=== PATIENT | female | born 1990 | race Caucasian/White ===

== ENCOUNTER 2020-11-05 08:30 | Outpatient (REF) | payer OTHER, SELFPAY ==
[2020-11-05 15:54] LABS: CT PCR NOT DETECTED (Not Detect.); NG PCR NOT DETECTED (Not Detect.)
[2020-11-06 08:40] LABS: BV Int Neg Control Negative (Negative); BV Int Pos Control Positive (Positive)
== END 2020-11-05 08:31 | disposition home or self-care (01) ==
LOC: HO.LAB 08:30
PROVIDERS: PCP Internal Medicine; Visit Provider Advanced Practice Midwife
DX: Z11.3 Encounter for screening for infections with a predominantly sexual mode of transmission (principal); N89.8 Other specified noninflammatory disorders of vagina; Z20.2 Contact with and (suspected) exposure to infections with a predominantly sexual mode of transmission
CPT/HCPCS: 87480; 87491; 87510; 87591; 87660; 99212

== ENCOUNTER 2021-03-05 13:00 | Outpatient (RCR) | payer OTHER, SELFPAY ==
--- NOTE | 2021-03-05 17:14 | MHC.PT.EP ---
[facility] Office [place] Office [place] Office [address] [phone] F: [phone] F: [phone] F: [phone] F: [phone] Physical Therapy Plan of Care Date of Evaluation: Date of Surgery: Diagnosis: dorsalgia Assessment: Pt is a 30 y/o female [employer] referred to PT for eval and treat of dorsalgia who reports recent bout of sciatica who presents with signs and Sx consistent with Dx resulting in decreased tolerance for gym exercise, standing and sitting for duration, and lifting objects of weight secondary to increased lumbar tissue tension, decreased core and hip strength, mild decreased R LE sensation and strength and LBP. Pt is deemed an appropriate candidate to receive skilled PT in order to address her physical limitations to improve her functional ability. Frequency and Duration: The patient will be seen 2 x/5wks. Short Term Goals: improve pain with activity to < 3/10; initial: 5/10 initiate HEP Snf Goals: I with HEP. Pt will be able to lift objects of weight from the floor with managed Sx. improve core strength to > good +. Pt will report she id no linger painful with standing for duration. Treatment Plan: Modalities to reduce pain, spasms and effusion. Manual therapy to restore motion and function. Therapeutic exercise to improve strength and flexibility. Neuromuscular re-education for posture and balance. Therapeutic activities to return to functional activities of daily living. Electronically signed by: Oscar Cheung PT. Please sign and return to therapist. Thank you for your referral.
--- NOTE | 2021-09-27 11:36 | MHC.PT.DC ---
[facility] [place] Office [place] Office [place] Office [address] Maria Eugenia Dixon [address] [phone] F: [phone] F: [phone] F: [phone] F: [phone] Physical Therapy Discharge Report Diagnosis: dorsalgia Date of Surgery: Date of Evaluation: 03/05/21 Date of Discharge: 03/05/21 Treatments to Date: 1 Cancellations to Date: No Shows to Date: Discharge Status: Discharge Summary: Pt stopped PT after evaluation Electronically signed by: Shmuel Alicia, PT Please sign and return to therapist. Thank you for your referral.
== END 2021-09-27 11:36 | disposition home or self-care (01) ==
LOC: HO.PTCHIC 13:00
PROVIDERS: PCP Internal Medicine; Visit Provider Internal Medicine
DX: M54.9 Dorsalgia, unspecified (principal)
CPT/HCPCS: 97110; 97161

== ENCOUNTER 2021-05-11 15:55 | Outpatient (REF) | payer OTHER, SELFPAY ==
[2021-05-11 18:39] LABS: Influenza A PCR NEGATIVE (Negative); Influenza B PCR NEGATIVE (Negative); Resp Syncy Virus RNA Qual PCR NEGATIVE (Negative); SARS COV2 PCR INHOUSE NEGATIVE (Negative)
== END 2021-05-11 15:56 | disposition home or self-care (01) ==
LOC: HO.LAB 15:55
PROVIDERS: PCP Internal Medicine; Visit Provider Nurse Practitioner Family
DX: J02.9 Acute pharyngitis, unspecified (principal); H66.90 Otitis media, unspecified, unspecified ear; R59.9 Enlarged lymph nodes, unspecified; Z20.822 Contact with and (suspected) exposure to COVID-19
CPT/HCPCS: 0241U

== ENCOUNTER 2021-05-24 09:03 | Outpatient (REF) | payer OTHER, SELFPAY ==
[2021-05-24 10:51] LABS: ~HepC Num1 0.08 S/CO (0.00-0.79); ~Hepatitis C Antibody Nonreactive (Nonreactive)
[2021-05-24 10:52] LABS: HBsAGNum1 0.23 S/CO (0.00-0.99); HIV AB/AG Nonreactive (Nonreactive); HIV Num 1 0.07 S/CO (0.00-0.99); Hepatitis B Surface Antigen Negative (Negative); Syphilis Screen Nonreactive (Nonreactive)
[2021-05-24 15:00] LABS: CT PCR NOT DETECTED (Not Detect.); NG PCR NOT DETECTED (Not Detect.)
[2021-05-25 08:33] LABS: BV Int Neg Control Negative (Negative); BV Int Pos Control Positive (Positive)
[2021-05-27 16:55] LABS: HPV mRNA E6/E7 rflx Not Detected (Not Detected)
== END 2021-05-24 09:04 | disposition home or self-care (01) ==
LOC: HO.LAB 09:03
PROVIDERS: PCP Internal Medicine; Visit Provider Advanced Practice Midwife
DX: Z01.419 Encounter for gynecological examination (general) (routine) without abnormal findings (principal); Z11.51 Encounter for screening for human papillomavirus (HPV); Z11.4 Encounter for screening for human immunodeficiency virus [HIV]; N89.8 Other specified noninflammatory disorders of vagina; Z20.2 Contact with and (suspected) exposure to infections with a predominantly sexual mode of transmission
CPT/HCPCS: 36415; 86780; 86803; 87340; 87389; 87480; 87491; 87510; 87591; 87624; 87660; 88142

== ENCOUNTER 2021-10-12 13:46 | Outpatient (REF) | payer OTHER, SELFPAY ==
[2021-10-12 14:45] LABS: Influenza A PCR NEGATIVE (Negative); Influenza B PCR NEGATIVE (Negative); Resp Syncy Virus RNA Qual PCR NEGATIVE (Negative); SARS COV2 PCR INHOUSE NEGATIVE (Negative)
== END 2021-10-12 13:47 | disposition home or self-care (01) ==
LOC: HO.LNP 13:46
PROVIDERS: Visit Provider Nurse Practitioner Family
DX: Z20.822 Contact with and (suspected) exposure to COVID-19 (principal)
CPT/HCPCS: 0241U

== ENCOUNTER 2022-05-25 11:18 | Outpatient (REF) | payer OTHER, SELFPAY ==
[2022-05-25 12:09] LABS: Influenza A PCR POSITIVE (Negative); Influenza B PCR NEGATIVE (Negative); Resp Syncy Virus RNA Qual PCR NEGATIVE (Negative); SARS COV2 PCR INHOUSE NEGATIVE (Negative)
== END 2022-05-25 11:19 | disposition home or self-care (01) ==
LOC: HO.LNP 11:18
PROVIDERS: Visit Provider Nurse Practitioner Family
DX: R68.89 Other general symptoms and signs (principal); Z20.822 Contact with and (suspected) exposure to COVID-19
CPT/HCPCS: 0241U

== ENCOUNTER → 2022-08-05 14:47 | Outpatient (REF) | payer OTHER, SELFPAY ==
--- NOTE | 2022-08-05 14:57 | ECG_ITS ---
Test Reason : ABNORMAL HEART BEAT Blood Pressure : / mmHG Vent. Rate : 077 BPM Atrial Rate : 077 BPM P-R Int : 166 ms QRS Dur : 084 ms QT Int : 362 ms P-R-T Axes : 007 034 039 degrees QTc Int : 409 ms Normal sinus rhythm with sinus arrhythmia Normal ECG When compared with ECG of 19-DEC-2019 15:47, No significant change was found Referred By: Vane Rivas Electronically Signed By:Tod Zhao
== END ==
LOC: HO.CARD 14:47
PROVIDERS: PCP Internal Medicine; Visit Provider Internal Medicine
DX: R00.9 Unspecified abnormalities of heart beat (principal)
CPT/HCPCS: 93005

== ENCOUNTER → 2022-08-30 14:58 | Outpatient (REF) | payer OTHER, SELFPAY ==
--- NOTE | 2022-08-30 15:01 | HM_ITS ---
Conclusion: 1. Patient was monitored for total period of 1 day and 23 hours 2. Baseline was normal sinus with average heart rate of 94 beats per minute 3. No significant pauses noted 4. Frequent sinus tachycardia, 30% of time heart rate greater than 100 beats per minute 5. Very rare ectopy noted 6. No patient reported symptoms MTDD
== END ==
LOC: HO.CARD 14:58
PROVIDERS: PCP Internal Medicine; Visit Provider Internal Medicine
DX: R00.9 Unspecified abnormalities of heart beat (principal)
CPT/HCPCS: 93225

== ENCOUNTER 2022-12-14 15:10 | Outpatient (AMB) | payer OTHER, SELFPAY ==
--- NOTE | 2022-12-14 15:14 | MHC.OFFVIS ---
Intake Vital Signs 12/14/22 15:15 Height 5 ft 5 in Weight 224 lb BMI 37.3 BP 118/86 Intake Visit Reasons: STD Testing Intake Note: The patient agreed to use of a medical office assistant during this encounter. Scribed for DRKAE Montejo by Maris Peters medical office assistant, on 12/14/2022 at 3:35 pm EST Oakes Machine Operator: Oakes Machine Operator Present (Annelise) Allergies Peanut (Diagnostic) Allergy (Severe, Uncoded 12/14/22 15:15) breathing difficulty, itching in throat peanuts Allergy (Severe, Uncoded 12/14/22 15:15) breathing difficulty, itching in throat seasonal Allergy (Mild, Uncoded 12/14/22 15:15) runny nose nut allergies Adverse Reaction (Severe, Uncoded 12/14/22 15:15) breathing difficulty, itching in throat Is last menstrual period known: Yes Last menstrual period: 11/28/22 HPI HPI Comments History of Present Illness Details She is here for STD testing and is interested in [facility]. She reports she had problems getting OCP's in the past and issues with insurance coverage for BC. She had Mirena IUD 10 years ago, recently sexually active and uses condoms for now. Denies any vaginal odors, pain or urinary symptoms. Reports HX of BV. Her next menses is December 25-. [facility] Medical History ADHD (attention deficit hyperactivity disorder) Back pain Bronchitis Flu-like symptoms Migraine Obesity (BMI 30-39.9) Surgical History No significant past surgical history Family History Maternal Grandfather Hypertension Maternal Grandmother Hypertension Maternal Aunt Breast cancer Social History Housing: House Alcohol intake: former Patient Tobacco Use Status: Never used Tobacco service: No Current occupational status: employed Female Reproductive History Menstrual Age of Menarche: 12 Duration of menses: 6-7 days Date of last menstrual period: 11/28/22 Total pregnancies: 1 Full term: 1 Number of Living Children: 1 Date of last pap smear: 05/24/21 (neg pap and hpv) Physical Exam Vital Signs: Last Vital Signs BP 118/86 12/14/22 15:15 BMI result Body Mass Index 37.3 Const General: cooperative, healthy appearing, comfortable, no acute distress, well developed, alert and awake Other: General: Yes bladder normal to palpation External Female Exam: normal external appearance and normal appearance of the urethra Speculum Exam - Vagina: normal appearance of the vagina, normal palpation and abnormal vaginal discharge (watery ) Speculum Exam - Cervix: normal appearance of the cervix and normal palpation Bimanual exam- vagina & uterus: normal bimanual exam, normal palpation, bladder normal to palpation and normal palpation Bimanual Exam- Adnexa, other: normal adnexae and no masses Assessment & Plan Assessment & Plan (1) Potential exposure to STD: Code(s): Z20.2 - Contact with and (suspected) exposure to infections with a predominantly sexual mode of transmission Plan: Discussed: BV testing and GC/CT panel today. STD blood work ordered. Await results and treat accordingly prior to the IUD insert. Mirena literature given. Schedule an appointment for insertion within the first 5 days of her cycle and no UPI. She should take ibuprofen 1 hour prior to procedure. Encouraged patient to sign up for patient portal. All of her questions and concerns were addressed to the best of my ability and shared decision making. She is agreeable to plan of care. Orders: Orders Hepatitis B Core Antibody Today Z20.2 - Contact with and (suspected) exposure to infections with a predominantly sexual mode of transmission Hepatitis C Antibody Today Z20.2 - Contact with and (suspected) exposure to infections with a predominantly sexual mode of transmission HIV Ab/Ag Today Z20.2 - Contact with and (suspected) exposure to infections with a predominantly sexual mode of transmission Syphilis Screen Today Z20.2 - Contact with and (suspected) exposure to infections with a predominantly sexual mode of transmission Bacterial Vaginosis Panel Today Z20.2 - Contact with and (suspected) exposure to infections with a predominantly sexual mode of transmission CT NG by PCR Today Z20.2 - Contact with and (suspected) exposure to infections with a predominantly sexual mode of transmission Coding Level of Care Code Est Pt Level 3 (86357) Diagnoses Potential exposure to STD Z20.2
[2022-12-14 15:15] VITALS: BP 118/86; BMI 37.3
== END 2022-12-14 15:42 | disposition home or self-care (01) ==
LOC: HO.HWS 15:10
PROVIDERS: PCP Internal Medicine; Visit Provider Advanced Practice Midwife
DX: Z20.2 Contact with and (suspected) exposure to infections with a predominantly sexual mode of transmission (principal)
CPT/HCPCS: 99213

== ENCOUNTER 2022-12-14 15:10 | Outpatient (REF) | payer OTHER, SELFPAY ==
[2022-12-15 07:43] LABS: Syphilis Screen Nonreactive (Nonreactive)
[2022-12-15 08:29] LABS: HBc Num1 0.04 S/CO (0.00-0.79); HIV AB/AG Nonreactive (Nonreactive); HIV Num 1 0.05 S/CO (0.00-0.99); Hepatitis B Core Antibody Nonreactive (Nonreactive); ~HepC Num1 0.06 S/CO (0.00-0.79); ~Hepatitis C Antibody Nonreactive (Nonreactive)
== END 2022-12-14 15:11 | disposition home or self-care (01) ==
LOC: HO.LAB 15:10
PROVIDERS: PCP Internal Medicine; Visit Provider Advanced Practice Midwife
DX: Z20.2 Contact with and (suspected) exposure to infections with a predominantly sexual mode of transmission (principal); Z97.5 Presence of (intrauterine) contraceptive device
CPT/HCPCS: 36415; 86704; 86780; 86803; 87389; 99212

== ENCOUNTER 2022-12-14 15:42 | Outpatient (REF) | payer OTHER, SELFPAY ==
[2022-12-15 01:52] LABS: CT PCR NOT DETECTED (Not Detect.); NG PCR NOT DETECTED (Not Detect.)
[2022-12-15 14:55] LABS: BV Int Neg Control Negative (Negative); BV Int Pos Control Positive (Positive)
== END 2022-12-14 15:43 | disposition home or self-care (01) ==
LOC: HO.LNP 15:42
PROVIDERS: Visit Provider Advanced Practice Midwife
DX: Z20.2 Contact with and (suspected) exposure to infections with a predominantly sexual mode of transmission (principal)
CPT/HCPCS: 0353U; 87480; 87510; 87660

== ENCOUNTER 2022-12-21 10:02 | Outpatient (REF) | payer OTHER, SELFPAY ==
[2022-12-21 10:18] LABS: MANUAL DIFF FLAG NO
[2022-12-21 10:44] LABS: Basophils Percent Auto 0.6 % (0-2); Eosinophils Absolute Auto 0.2 X10*3/uL (0.0-0.4); Eosinophils Percent Auto 2.4 % (0-4); Hematocrit 43.6 % (37.0-47.0); Hemoglobin 14.6 g/dl (12.0-16.0); Imm Gran Abs Auto 0.02 X10*3/uL (0.00-0.03); Imm Gran Pct Auto 0.3 % (0.0-0.4); Lymphocytes Absolute Auto 1.5 X10*3/uL (1.2-4.9); Lymphocytes Percent Auto 21.4 % (20-40); Mean Corpuscular HGB Conc 33.5 g/dl (31.0-35.0); Mean Corpuscular Hemoglobin 29.8 pg (27.0-33.0); Mean Platelet Volume 8.7 fL (9.4-12.3); Monocytes Absolute Auto 0.4 X10*3/uL (0.1-1.2); Monocytes Percent Auto 5.9 % (2-11); Neutrophils Absolute Auto 4.9 x10*3/uL (2.0-8.3); Neutrophils Percent Auto 69.4 % (45-73); Platelet Count 284 X10*3/uL (160-400); Red Cell Distribution Width 12.5 % (11.0-16.0); White Blood Count 7.1 X10*3/uL (4.8-10.8)
[2022-12-21 11:37] LABS: Alanine Aminotransferase 26 U/L (0-31); Alkaline Phosphatase 72 U/L (39-117); Anion Gap 13 (12-20); Aspartate Amino Transferase 20 U/L (5-31); Bilirubin Total 0.5 mg/dL (0.0-1.0); Blood Urea Nitrogen 9 mg/dL (9-16); Calcium 9.1 mg/dL (8.4-10.2); Carbon Dioxide 24 mmol/L (22-29); Chloride 110 mmol/L (96-108); Cholesterol 137 mg/dL; Estimated Glomerular Filt Rate > 60; Glucose Fasting 98 mg/dL (60-99); HDL Cholesterol 49 mg/dL; Iron 63 mcg/dL (30-160); LDL Cholesterol Calculated 76 mg/dl; Percent Iron Saturation 27 % (15-50); Potassium 4.6 mmol/L (3.3-5.1); Sodium 142 mmol/L (135-145); Total Iron Binding Capacity 232 mcg/dL (228-428); Total Protein 6.8 g/dL (6.5-8.0); Triglycerides 64 mg/dL; Unsaturated Iron Binding 169 ug/dL
[2022-12-21 11:44] LABS: Thyroid Stimulating Hormone 2.25 uIU/mL (0.32-4.0)
== END 2022-12-21 10:03 | disposition home or self-care (01) ==
LOC: HO.LAB 10:02
PROVIDERS: PCP Internal Medicine; Visit Provider Internal Medicine
DX: R00.0 Tachycardia, unspecified (principal); D64.9 Anemia, unspecified; E78.5 Hyperlipidemia, unspecified
CPT/HCPCS: 36415; 80053; 80061; 83540; 84443; 85025

== ENCOUNTER 2022-12-22 08:26 | Outpatient (AMB) | payer OTHER, SELFPAY ==
[2022-12-22 08:38] VITALS: BP 110/80; BMI 37.3
--- NOTE | 2022-12-22 08:38 | A.OFFPC_ITS ---
Vital Signs 12/22/22 08:38 Height 5 ft 5 in Weight 224 lb BMI 37.3 BP 110/80 Blood Pressure Location Lt brachial Position Sitting Intake Visit Reasons: Annual Exam Intake Note: Patient here for an annual physical exam Bit Gatherer Required: No Accompanied by: Self / Same As Patient Allergies Peanut (Diagnostic) Allergy (Severe, Uncoded 12/22/22 08:53) breathing difficulty, itching in throat peanuts Allergy (Severe, Uncoded 12/22/22 08:53) breathing difficulty, itching in throat seasonal Allergy (Mild, Uncoded 12/22/22 08:53) runny nose nut allergies Adverse Reaction (Severe, Uncoded 12/22/22 08:53) breathing difficulty, itching in throat Medication List - Last Reconciled 12/22/22 by Vane Rivas MD methylphenidate HCl 10 mg PO BID 30 days metronidazole 500 mg PO BID 7 days Ventolin HFA 90 mcg/actuation (albuterol sulfate) 2 puffs inhalation Q6H PRN 30 days NS Tobacco use date assessed: 08/05/22 Dental Screening Dental Screen Date: 12/22/22 Did you have a dental visit in the last 12 months?: Yes Did you have a dental problem in the last 6 months where you did not have access to dental care?: No Was dental information given to patient?: Patient has dentist HPI HPI Comments History of Present Illness Details This is a 32-year-old female that comes for her physical exam. Last Pap smear was 2021 and was normal with HPV negative. She is obese with a BMI of 37.3 and would like weight loss surgery but does not want to follow the diet that weight management gave her. No chest pain or shortness of breath. [facility] Medical History (Updated 12/22/22 @ 09:11 by Vane Rivas MD) ADHD (attention deficit hyperactivity disorder) Back pain Bronchitis Flu-like symptoms Migraine Obesity (BMI 30-39.9) Surgical History No significant past surgical history Family History Maternal Grandfather Hypertension Maternal Grandmother Hypertension Maternal Aunt Breast cancer Family/Other Mental health disorder Substance use disorder Social History (Updated 12/22/22 @ 08:57 by Vane Rivas MD) Housing: House Alcohol intake: current Alcohol intake frequency: a few times a month Alcohol type: wine Patient Tobacco Use Status: Never used Tobacco e-Cigarette/Vaping Use: Never Used Second Hand Smoke Exposure: No Substance Use Type: Marijuana service: No Current occupational status: employed Current occupational exposures/hazards: No Cognitive needs: No Hearing needs: No Vision needs: No Female Reproductive History Menstrual Age of Menarche: 12 Questionnaire PHQ-9 Over the last 2 weeks, how often have you been bothered by any of the following problems? 1. Little interest or pleasure in doing things: not at all 2. Feeling down, depressed, or hopeless: not at all 3. Trouble falling or staying asleep, or sleeping too much: not at all 4. Feeling tired or having little energy: not at all 5. Poor appetite or overeating: not at all 6. Feeling bad about yourself - or that you are a failure or have let yourself or your family down: not at all 7. Trouble concentrating on things, such as reading the newspaper or watching television: not at all 8. Moving or speaking so slowly that other people could have noticed. Or the opposite - being so fidgety or restless that you have been moving around a lot more than usual: several days 9. Thoughts that you would be better off or of hurting yourself in some way: not at all Total score: 1 Depression Screening Interpretation: Negative 18674 - PHQ-9 Billing: Yes Source: Developed by Drs. Allen Muñoz, Ana Maria Ghotra, You Leal and colleagues, with an educational rickie from [employer]. Thrive Questionnaire Date Thrive assessed: 12/22/22 I am a: Patient What is your living situation today?: I have a steady place to live Within the past 12 months, did the food you bought not last and you didn't have the money to get more?: Never true Within the past 12 months, did you worry whether your food would run out before you got money to buy more?: Never true Do you have trouble paying for medicines?: No Do you have trouble getting transportation to medical appointments?: No Do you have trouble paying your heating and electricity bill?: No Do you have trouble taking care of your child, family member or friend?: No Do you have trouble with day-to-day activities such as bathing, preparing meals, shopping, managing finances, etc.?: No Are you currently unemployed and looking for a job?: No Are you interested in more education?: No Please select the resources that you would like help with: None Currently or been in a relationship where the following occur: no concerns reported AUDIT C Alcohol Use Questionnaire (AUDIT-C) 1. How often do you have a drink containing alcohol?: Monthly or less 2. How many drinks containing alcohol do you have on a typical day when you are drinking?: 1 or 2 3. How often do you have six or more drinks on one occasion?: Never Total Score: 1 Score Reviewed/Action Taken: No SHAJI-7 AMB Questionnaire SHAJI-7 Date SHAJI - 7 assessed: 12/22/22 Feeling nervous, anxious, or on edge: 2 = More than half the days Not being able to stop or control worryin = Several days Worrying too much about different things: 2 = More than half the days Trouble relaxin = Not at all Being so restless that it is hard to sit still: 0 = Not at all Becoming easily annoyed or irritable: 0 = Not at all Feeling afraid as if something awful might happen: 1 = Several days Total SHAJI-7 score (0-4 normal; 5-9 mild; 10-14 moderate; 15-21 severe): 6 Source: Developed by Drs. Allen Muñoz, Ana Maria Ghotra, You Leal and colleagues, with an educational rickie from [employer]. SHAJI-7 Assessment Billing SHAJI-7 Assessment Tool: SHAJI-7 Assessment 89231 Review of Systems Const All systems reviewed & are unremarkable except as noted in HPI and below Eyes Reports no additional complaints, Denies change in vision and Denies other visual disturbances Card Denies chest pain at rest, Denies chest pain with activity, Denies edema, Denies irregular heart rhythm, Denies claudication, Denies dyspnea, Denies dyspnea on exertion, Denies orthopnea, Denies paroxysmal nocturnal dyspnea and Denies slow heart rate Resp Denies cough, Denies dyspnea and Denies dyspnea on exertion GI Denies abdominal pain, Denies change in bowel habits, Denies excessive flatus, Denies nausea and Denies vomiting Denies urinary incontinence, Denies urinary hesitancy and Denies urinary urgency Musc Denies abnormal gait, Denies atrophy, Denies deformity and Denies limited range of motion Skin/Breast Denies bleeding lesions, Denies changing lesions and Denies rash Neuro Denies abnormal gait and Denies lack of coordination Physical exam (Primary Care) Vital Signs: Last Vital Signs BP 110/80 12/22/22 08:38 BMI result Body Mass Index 37.3 Tobacco/Smoking Status: Tobacco use Status Tobacco use date assessed 08/05/22 12/22/22 08:43 Patient Tobacco Use Status Never used Tobacco 12/22/22 08:57 e-Cigarette/Vaping Use Never Used 12/22/22 08:57 PHQ-9: PHQ-9 Score PHQ-9: Total score 1 12/22/22 09:00 Depression Screening Interpretation: Negative Thrive Assessment: Date of Thrive Assessment Date Thrive assessed 12/22/22 12/22/22 08:43 Currently or been in a relationship where the following occur: no concerns reported Const Orientation/consciousness: patient oriented x3 HENMT Head: Yes normal to inspection, Yes normocephalic and Yes atraumatic Ears: external ears normal Eyes General: appearance normal, both eyes and all related structures Eyelids: Yes eyelids normal Conjunctivae: conjunctivae normal Neck Neck: Yes normal visual inspection and Yes supple Resp Effort & Inspection: normal respiratory effort Auscultation: clear to auscultation bilaterally Cardio Jugular venous distension: no JVD Rate: regular rate Rhythm: regular rhythm Heart sounds: S1 normal heart sound present and S2 normal heart sound present GI Inspection: Yes normal to inspection Palpation (GI): Soft to palpation and nontender Auscultation: normal bowel sounds Skin General skin exam: no rashes or lesions noted Neuro General: patient oriented x3 and no focal motor deficits Extrem General: Yes full ROM Psych Appearance: grossly normal Assessment and Plan Assessment & Plan (1) Physical exam: Code(s): Z00.00 - Encounter for general adult medical examination without abnormal findings Plan: Repeat in a year Coding Level of Care Code Est Pt Prev Care 18-39y(95730) Diagnoses Physical exam Z00.00 Additional Codes SHAJI-7 Assessment Billing - SHAJI-7 Assessment Tool: SHAJI-7 Assessment 32984 ([id number]) Time Spent (min) 33
== END 2022-12-22 09:26 | disposition home or self-care (01) ==
PROVIDERS: PCP Internal Medicine; Visit Provider Internal Medicine
DX: Z00.00 Encounter for general adult medical examination without abnormal findings (principal)
CPT/HCPCS: 99395

== ENCOUNTER → 2022-12-29 14:44 | Outpatient (BNVA) | payer OTHER, SELFPAY | PROVIDERS: PCP Internal Medicine; Visit Provider Advanced Practice Midwife | DX: Z30.430 Encounter for insertion of intrauterine contraceptive device (principal) | CPT/HCPCS: 58300; J7298 ==

== ENCOUNTER 2023-01-26 13:48 | Outpatient (AMB) | payer OTHER, SELFPAY ==
[2023-01-26 13:59] VITALS: BP 135/88; PULSE 69; BMI 37.4
--- NOTE | 2023-01-26 13:59 | A.OFFVIS_ITS ---
Intake Vital Signs 01/26/23 13:59 01/26/23 14:09 01/26/23 14:12 Height 5 ft 5 in Weight 224 lb 13.944 oz BMI 37.4 BP 135/88 138/97 H 130/90 H Blood Pressure Location Lt brachial Lt brachial Lt brachial Position Supine Sitting Standing Pulse 69 75 82 Intake Visit Reasons: NPV/Tachycardia/Vane Nuno Intake Note: New patient dx Tachycardia c/o palpitations and get a little lighthead if heart rate is up Matrix Drier Tender Required: No Allergies Peanut (Diagnostic) Allergy (Severe, Uncoded 12/22/22 08:53) breathing difficulty, itching in throat peanuts Allergy (Severe, Uncoded 12/22/22 08:53) breathing difficulty, itching in throat seasonal Allergy (Mild, Uncoded 12/22/22 08:53) runny nose nut allergies Adverse Reaction (Severe, Uncoded 12/22/22 08:53) breathing difficulty, itching in throat Medication List - Last Reconciled 01/26/23 by Baldomero Livingston MD methylphenidate HCl 10 mg PO BID 30 days HPI HPI Comments History of Present Illness Details Art was referred here for Holter findings suggestive frequent sinus tachycardia. 30% of time a heart rate is about 100 beats per minute on the monitor. She has no symptoms related to it. She is more worried about slow heart rate she notices on [employer] watch. During the Holter monitor she had no significant slow heart rate of bradycardia or pauses. She denies any lig htheadedness, syncope. She is trying to lose weight. She is using med self ended 8 because of symptoms of fatigue and attention deficit disorder. She says she feels fatigued throughout the day and also has daytime somnolence. She denies any exertional chest pain or shortness of breath. Noted to have slightly elevated blood pressure today. There is no orthostatic drop in her blood pressure. [facility] Medical History Flu-like symptoms Back pain Obesity (BMI 30-39.9) ADHD (attention deficit hyperactivity disorder) Migraine Bronchitis Surgical History No significant past surgical history Family History Maternal Grandfather Hypertension Maternal Grandmother Hypertension Maternal Aunt Breast cancer Family/Other Mental health disorder Substance use disorder Social History Housing: House Alcohol intake: current Alcohol intake frequency: a few times a month Alcohol type: wine Patient Tobacco Use Status: Never used Tobacco e-Cigarette/Vaping Use: Never Used Second Hand Smoke Exposure: No Substance Use Type: Marijuana service: No Current occupational status: employed Current occupational exposures/hazards: No Cognitive needs: No Hearing needs: No Vision needs: No Female Reproductive History Menstrual Age of Menarche: 12 Review of Systems Const Denies chills, Denies daytime sleepiness, Denies fatigue, Denies fever(s), Denies frequent falls, Denies poor appetite, Denies snoring, Denies stops breathing during sleep, Denies weakness, Denies weight gain and Denies weight loss Eyes Denies loss of vision ENT Denies dizziness and Denies hearing loss Card Denies chest pain, Denies claudication, Denies leg edema, Denies lightheadedne ss, Denies palpitations, Denies dyspnea, Denies dyspnea on exertion and Denies orthopnea Resp Denies cough, Denies excessive phlegm production, Denies dyspnea, Denies dyspnea on exertion, Denies snoring and Denies wheezing GI Denies abdominal pain, Denies hematochezia, Denies change in bowel habits, Denies nausea and Denies vomiting Denies urinary frequency and Denies dysuria Musc Denies arthralgias, Denies muscle weakness, Denies numbness and Denies other (frequent falls) Skin/Breast Denies nail changes and Denies rash Neuro Denies Abnormal speech present, Denies dizziness, Denies frequent falls, Denies loss of vision, Denies memory loss, Denies numbness and Denies weakness Psych Denies depression and Denies memory loss Endo Denies fatigue and Denies palpitations Luis/Lymph Reports easy bruising and Reports other (anemia) Aller/Immun Denies wheezing Physical Exam Vital Signs: Last Vital Signs Pulse 82 01/26/23 14:12 BP 130/90 H 01/26/23 14:12 BMI result Body Mass Index 37.4 Const General: cooperative, comfortable, no acute distress, alert, awake and Physically active Nutritional Appearance: obese Orientation/consciousness: patient oriented x3 Limitations: no limitations HEENT Head: Yes normocephalic and Yes atraumatic Neck Neck: Yes trachea midline, Yes supple and Yes no JVD Resp Effort & Inspection: normal respiratory effort Auscultation: clear to auscultation bilaterally Cardio Jugular venous distension: no JVD Palpation: normal PMI Rate: regular rate Rhythm: regular rhythm Heart sounds: S1 normal heart sound present, S2 normal heart sound present, no click, no gallops and no murmurs GI Auscultation: normal bowel sounds Skin General skin exam: no rashes or lesions noted Neuro General: patient oriented x3 and no focal motor deficits Speech: No Abnormal speech present Extrem General: Yes no clubbing, cyanosis or edema Assessment & Plan Assessment & Plan (1) Sinus tachycardia: Code(s): R00.0 - Tachycardia, unspecified Plan: Asymptomatic sinus tachycardia in this young woman, most likely related to stimulant therapy. She has no symptoms related to it. Related to hypovolemia cannot be entirely ruled out. I would not necessarily treat this condition. A blood pressures noted to be slightly elevated today. With her daytime somnolence, weight and high blood pressure need to rule out obstructive sleep apnea. Discussed with her. She was not very excited to do any further workup at this point in time. Consider the same. Also would check TSH to evaluate for any evidence of hyperthyroidism that could cause sinus tachycardia. No further workup is indicated at this point time. Holter monitor did not show any evidence of slow heart rate or bradycardia and therefore I am not sure if the smart watch based heart rate is accurate. Will sign of the case. Thank you for allowing me to partake in her care Coding Level of Care Code New Pt Level 3 (41950) Diagnoses Sinus tachycardia R00.0
[2023-01-26 14:09] VITALS: BP 138/97; PULSE 75
[2023-01-26 14:12] VITALS: BP 130/90; PULSE 82
== END 2023-01-26 14:25 | disposition home or self-care (01) ==
PROVIDERS: PCP Internal Medicine; Referring Provider Internal Medicine; Visit Provider Internal Medicine Cardiovascular Disease
DX: R00.0 Tachycardia, unspecified (principal)
CPT/HCPCS: 99203

== ENCOUNTER → 2023-01-26 13:48 | Outpatient (BNVA) | payer OTHER, SELFPAY | PROVIDERS: PCP Internal Medicine; Referring Provider Internal Medicine; Visit Provider Internal Medicine Cardiovascular Disease | DX: R00.0 Tachycardia, unspecified (principal) | CPT/HCPCS: 99202 ==

== ENCOUNTER 2023-02-02 14:17 | Outpatient (AMB) | payer OTHER, SELFPAY ==
[2023-02-02 14:19] VITALS: BP 104/60; BMI 37.3
--- NOTE | 2023-02-02 14:19 | A.OFFVIS_ITS ---
Intake Vital Signs 02/02/23 14:19 Height 5 ft 5 in Weight 224 lb BMI 37.3 BP 104/60 Intake Visit Reasons: IUD Check Intake Note: The patient agreed to use of a electromedical service engineer during this encounter. Scribed for DRAKE Montejo by Maris Peters electromedical service engineer, on 02/02/2023 at 2:36 pm EST. Metal Bench Patternmaker: Metal Bench Patternmaker Present (Annelise) Allergies Peanut (Diagnostic) Allergy (Severe, Uncoded 02/02/23 14:19) breathing difficulty, itching in throat peanuts Allergy (Severe, Uncoded 02/02/23 14:19) breathing difficulty, itching in throat seasonal Allergy (Mild, Uncoded 02/02/23 14:19) runny nose nut allergies Adverse Reaction (Severe, Uncoded 02/02/23 14:19) breathing difficulty, itching in throat Is last menstrual period known: Yes Last menstrual period: 01/26/23 HPI HPI Comments History of Present Illness Details She is presenting for IUD check. She had the Mirena IUD placed on 12/29/2022. She has no concerns, other than increased appetite. Denies pain, abnormal discharge, or other concerns. [facility] Medical History Flu-like symptoms Back pain Obesity (BMI 30-39.9) ADHD (attention deficit hyperactivity disorder) Migraine Bronchitis Surgical History No significant past surgical history Family History Maternal Grandfather Hypertension Maternal Grandmother Hypertension Maternal Aunt Breast cancer Family/Other Mental health disorder Substance use disorder Social History Housing: House Alcohol intake: current Alcohol intake frequency: a few times a month Alcohol type: wine Patient Tobacco Use Status: Never used Tobacco e-Cigarette/Vaping Use: Never Used Second Hand Smoke Exposure: No Substance Use Type: Marijuana service: No Current occupational status: employed Current occupational exposures/hazards: No Cognitive needs: No Hearing needs: No Vision needs: No Female Reproductive History Menstrual Age of Menarche: 12 Date of last menstrual period: 01/26/23 control method: progestin IUCD (Mirena 12/29/2022; IUD strings visible 02/02/23) Physical Exam Vital Signs: Last Vital Signs BP 104/60 02/02/23 14:19 BMI result Body Mass Index 37.3 Const General: cooperative, healthy appearing, comfortable, no acute distress, well developed, alert and awake Other: General: Yes bladder normal to palpation External Female Exam: normal external appearance and normal appearance of the urethra Speculum Exam - Vagina: normal appearance of the vagina, normal palpation and normal vaginal discharge Speculum Exam - Cervix: normal appearance of the cervix, normal palpation and Other cervical findings present (IUD strings visible) Bimanual exam- vagina & uterus: normal bimanual exam, normal palpation, bladder normal to palpation and normal palpation Bimanual Exam- Adnexa, other: normal adnexae and no masses Assessment & Plan Assessment & Plan (1) IUD surveillance: Code(s): Z30.431 - Encounter for routine checking of intrauterine contraceptive device Plan: Discussed: Maintaining a healthy lifestyle including a well balanced diet and routine exercise to avoid weight gain. Bleeding tends to taper down, some women do not bleed at all for months, some have unscheduled and random bleeding. Monitor bleeding and cramps for the next 1-2 months and contact office with any concerns or questions. RTO prn, annual civil engineering design draftsperson 05/2023. Coding Level of Care Code Est Pt Level 2 (55114) Diagnoses IUD surveillance Z30.431
== END 2023-02-02 15:22 | disposition home or self-care (01) ==
PROVIDERS: PCP Internal Medicine; Visit Provider Advanced Practice Midwife
DX: Z30.431 Encounter for routine checking of intrauterine contraceptive device (principal)
CPT/HCPCS: 99212

== ENCOUNTER → 2023-02-02 14:17 | Outpatient (BNVA) | payer OTHER, SELFPAY | PROVIDERS: PCP Internal Medicine; Visit Provider Advanced Practice Midwife | DX: Z30.431 Encounter for routine checking of intrauterine contraceptive device (principal) | CPT/HCPCS: 99212 ==

== ENCOUNTER 2023-02-17 07:51 | Outpatient (AMB) | payer OTHER, SELFPAY ==
[2023-02-17 07:55] VITALS: BP 124/82; PULSE 76; O2SAT 98; BMI 37.6
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
== END 2023-02-17 09:33 | disposition home or self-care (01) ==
PROVIDERS: PCP Internal Medicine; Visit Provider Nurse Practitioner Family
DX: S16.1XXA Strain of muscle, fascia and tendon at neck level, initial encounter (principal); V89.2XXA Person injured in unspecified motor-vehicle accident, traffic, initial encounter
CPT/HCPCS: 99213

== ENCOUNTER 2023-03-01 13:56 | Outpatient (AMB) | payer OTHER, SELFPAY ==
--- NOTE | 2023-03-01 13:59 | MHC.OFFVIS ---
Intake Vital Signs 03/01/23 14:00 Height 5 ft 5 in Weight 227 lb BMI 37.8 Intake Visit Reasons: discharge w/odor Intake Note: vaginal discharge and odor Buyer Internship Required: No Information Interpreted: non-clinical & clinical Robotics Engineer: Robotics Engineer Present (Yaneth) Allergies Peanut (Diagnostic) Allergy (Severe, Uncoded 03/01/23 14:03) breathing difficulty, itching in throat peanuts Allergy (Severe, Uncoded 03/01/23 14:03) breathing difficulty, itching in throat seasonal Allergy (Mild, Uncoded 03/01/23 14:03) runny nose nut allergies Adverse Reaction (Severe, Uncoded 03/01/23 14:03) breathing difficulty, itching in throat Medication List - Last Reconciled 03/01/23 by Lyndsay Hopper CNM levonorgestrel (Mirena) intrauterine methylphenidate HCl 10 mg PO BID 30 days Is last menstrual period known: Yes Last menstrual period: 02/20/23 Post menopausal: No HPI discharge w/odor HPI Details Patient is here worried about an STD she had a Mirena IU S placed in December came for the checkup and then she had a period that was very light that she did not even have to use a tampon or pad with. She did have sex without a condom so she is very worried that maybe she caught an STD she thought initially that the odor was her period, But then it became worse. She has got kind of a yellowish discharge. [facility] Medical History Flu-like symptoms Back pain Obesity (BMI 30-39.9) ADHD (attention deficit hyperactivity disorder) Migraine Bronchitis Surgical History No significant past surgical history Family History Maternal Grandfather Hypertension Maternal Grandmother Hypertension Maternal Aunt Breast cancer Family/Other Mental health disorder Substance use disorder Social History Housing: House Alcohol intake: current Alcohol intake frequency: a few times a month Alcohol type: wine Patient Tobacco Use Status: Never used Tobacco e-Cigarette/Vaping Use: Never Used Second Hand Smoke Exposure: No Substance Use Type: Marijuana service: No Current occupational status: employed Current occupational exposures/hazards: No Cognitive needs: No Hearing needs: No Vision needs: No Female Reproductive History Menstrual Age of Menarche: 12 Date of last menstrual period: 02/20/23 control method: progestin IUCD Total pregnancies: 1 Full term: 1 Number of Living Children: 1 Date of last pap smear: 05/25/21 (negative) Physical Exam Vital Signs: BMI result Body Mass Index 37.8 External Female Exam: normal external appearance and normal appearance of the urethra Speculum Exam - Vagina: normal appearance of the vagina and abnormal vaginal discharge (Watery yellowish discharge) Speculum Exam - Cervix: normal appearance of the cervix (With Mirena strings) and Cervical os closed Assessment & Plan Assessment & Plan (1) Potential exposure to STD: Code(s): Z20.2 - Contact with and (suspected) exposure to infections with a predominantly sexual mode of transmission (2) Problematic vaginal discharge: Code(s): N89.8 - Other specified noninflammatory disorders of vagina Plan Discussed her concerns about STIs. Discussed her previous history of having bacterial vaginosis but most of the time it did not present many symptoms for her. She has been [employer] lots of information. The IUD in and of itself is not causing her any difficulty. She is just very worried about infection. I reviewed the would not able to tell exactly by looking. Discussed that if I treat her with Flagyl 500 mg b.i.d. for 1 week that would treat for both ?bacterial vaginosis?/Gardnerella as well as trichomoniasis. If it turns out that there is chlamydia than that would require different medication. Given her concern I am going to treat her today and she may call in tomorrow or the next day to see how the rest of the testing has turned out. She will be having an annual exam coming up. Orders: Orders Bacterial Vaginosis Panel Today N89.8 - Other specified noninflammatory disorders of vagina, Z20.2 - Contact with and (suspected) exposure to infections with a predominantly sexual mode of transmission CT NG by PCR Today N89.8 - Other specified noninflammatory disorders of vagina, Z20.2 - Contact with and (suspected) exposure to infections with a predominantly sexual mode of transmission Medications: New metronidazole 500 mg PO Q12H 14 tabs 0RF Coding Level of Care Code Est Pt Level 3 (86912) Diagnoses Potential exposure to STD Z20.2 Problematic vaginal discharge N89.8
[2023-03-01 14:00] VITALS: BMI 37.8
== END 2023-03-01 15:36 | disposition home or self-care (01) ==
PROVIDERS: PCP Internal Medicine; Visit Provider Advanced Practice Midwife
DX: Z20.2 Contact with and (suspected) exposure to infections with a predominantly sexual mode of transmission (principal); N89.8 Other specified noninflammatory disorders of vagina
CPT/HCPCS: 99213

== ENCOUNTER 2023-03-01 13:56 | Outpatient (REF) | payer OTHER, SELFPAY ==
[2023-03-01 17:56] LABS: CT PCR NOT DETECTED (Not Detect.); NG PCR NOT DETECTED (Not Detect.)
[2023-03-02 09:54] LABS: BV Int Neg Control Negative (Negative); BV Int Pos Control Positive (Positive)
== END 2023-03-01 13:57 | disposition home or self-care (01) ==
LOC: HO.LNP 13:56
PROVIDERS: PCP Internal Medicine; Visit Provider Advanced Practice Midwife
DX: N89.8 Other specified noninflammatory disorders of vagina (principal); Z20.2 Contact with and (suspected) exposure to infections with a predominantly sexual mode of transmission
CPT/HCPCS: 0353U; 87480; 87510; 87660; 99212

== ENCOUNTER 2023-05-31 07:38 | Outpatient (AMB) | payer OTHER, SELFPAY ==
--- NOTE | 2023-05-31 07:55 | A.OFFVIS_ITS ---
Intake Vital Signs 05/31/23 08:03 Height 5 ft 5 in BP 110/62 Blood Pressure Location Lt brachial Intake Visit Reasons: BV Symptoms/?due to IUD Material Coordinator Required: No Allergies Peanut (Diagnostic) Allergy (Severe, Uncoded 03/01/23 14:03) breathing difficulty, itching in throat peanuts Allergy (Severe, Uncoded 03/01/23 14:03) breathing difficulty, itching in throat seasonal Allergy (Mild, Uncoded 03/01/23 14:03) runny nose nut allergies Adverse Reaction (Severe, Uncoded 03/01/23 14:03) breathing difficulty, itching in throat HPI HPI Comments History of Present Illness Details Patient presents today with an increased vaginal discharge. IUD inserted December 2022. She denies any urinary symptoms or pelvic pain. She has had 3 episodes of bacterial vaginosis in the last year and feels the onset symptoms for this. [facility] Medical History Flu-like symptoms Back pain Obesity (BMI 30-39.9) ADHD (attention deficit hyperactivity disorder) Migraine Bronchitis Surgical History No significant past surgical history Family History Maternal Grandfather Hypertension Maternal Grandmother Hypertension Maternal Aunt Breast cancer Family/Other Mental health disorder Substance use disorder Social History Housing: House Alcohol intake: current Alcohol intake frequency: a few times a month Alcohol type: wine Patient Tobacco Use Status: Never used Tobacco e-Cigarette/Vaping Use: Never Used Second Hand Smoke Exposure: No Substance Use Type: Marijuana service: No Current occupational status: employed Current occupational exposures/hazards: No Cognitive needs: No Hearing needs: No Vision needs: No Female Reproductive History Menstrual Age of Menarche: 12 Review of Systems Const All systems reviewed & are unremarkable except as noted in HPI and below Physical Exam Vital Signs: Last Vital Signs BP 110/62 05/31/23 08:03 Const General: cooperative, healthy appearing and no acute distress Orientation/consciousness: patient oriented x3 GI Inspection: Yes normal to inspection Palpation (GI): Soft to palpation and Other GI palpation findings present (Nontender) Rectal Exam - Female: visual inspection normal General: Yes bladder normal to palpation External Female Exam: normal appearance of the urethra Speculum Exam - Vagina: normal appearance of the vagina, normal palpation and normal vaginal discharge Speculum Exam - Cervix: normal appearance of the cervix, normal palpation and Other cervical findings present (IUD strings present) Bimanual exam- vagina & uterus: normal bimanual exam, normal palpation, uterine size normal, bladder normal to palpation, normal palpation, uterine shape normal and non-tender Bimanual Exam- Adnexa, other: normal adnexae Neuro General: patient oriented x3 Assessment & Plan Assessment & Plan (1) Vaginal discharge: Code(s): N89.8 - Other specified noninflammatory disorders of vagina Plan Discussed: Recurrent bacterial vaginosis. Boric acid information handout provided. Await cultures for plan of care. Schedule annual for people 2023. All of her questions and concerns were addressed to the best of my ability and shared decision making. She is agreeable to the plan of care. Coding Level of Care Code Est Pt Level 3 (57312) Diagnoses Vaginal discharge N89.8
[2023-05-31 08:03] VITALS: BP 110/62
== END 2023-05-31 08:15 | disposition home or self-care (01) ==
PROVIDERS: PCP Internal Medicine; Visit Provider Advanced Practice Midwife
DX: N89.8 Other specified noninflammatory disorders of vagina (principal)
CPT/HCPCS: 99213

== ENCOUNTER 2023-05-31 07:38 | Outpatient (REF) | payer OTHER, SELFPAY ==
[2023-06-01 03:11] LABS: CT PCR NOT DETECTED (Not Detect.); NG PCR NOT DETECTED (Not Detect.)
[2023-06-01 09:21] LABS: BV Int Neg Control Negative (Negative); BV Int Pos Control Positive (Positive)
== END 2023-05-31 07:39 | disposition home or self-care (01) ==
LOC: HO.LNP 07:38
PROVIDERS: PCP Internal Medicine; Visit Provider Advanced Practice Midwife
DX: N89.8 Other specified noninflammatory disorders of vagina (principal); Z97.5 Presence of (intrauterine) contraceptive device
CPT/HCPCS: 0353U; 87480; 87510; 87660; 99212

== ENCOUNTER 2023-12-26 07:47 | Outpatient (AMB) | payer OTHER, SELFPAY ==
--- NOTE | 2023-12-26 07:48 | A.OFFPC_ITS ---
Vital Signs 12/26/23 07:49 Height 5 ft 5 in Weight 228 lb BMI 37.9 BP 126/80 Blood Pressure Location Lt brachial Position Sitting Intake Visit Reasons: PE Multimedia Editor Required: No Accompanied by: Self / Same As Patient Allergies Peanut (Diagnostic) Allergy (Severe, Uncoded 12/26/23 08:02) breathing difficulty, itching in throat peanuts Allergy (Severe, Uncoded 12/26/23 08:02) breathing difficulty, itching in throat seasonal Allergy (Mild, Uncoded 12/26/23 08:02) runny nose nut allergies Adverse Reaction (Severe, Uncoded 12/26/23 08:02) breathing difficulty, itching in throat Medication List - Last Reconciled 12/26/23 by Vane Rivas MD levonorgestrel (Mirena) intrauterine methylphenidate HCl ER 54 mg PO QAM tirzepatide 2.5 mg subcut QWEEK Tobacco use date assessed: 12/26/23 Dental Screening Dental Screen Date: 12/26/23 Did you have a dental visit in the last 12 months?: Yes Did you have a dental problem in the last 6 months where you did not have access to dental care?: No Was dental information given to patient?: Patient has dentist HPI HPI Comments History of Present Illness Details This is a 33-year-old female that comes for her physical exam. Last Pap smear was 2021 and was normal with HPV negative. No acute complaints. She is obese with a BMI of 37.9 and is enroll in weight management. [facility] Medical History (Updated 12/26/23 @ 08:05 by Vane Rivas MD) Flu-like symptoms Back pain Obesity (BMI 30-39.9) ADHD (attention deficit hyperactivity disorder) Migraine Bronchitis Surgical History No significant past surgical history Family History Maternal Grandfather Hypertension Maternal Grandmother Hypertension Maternal Aunt Breast cancer Family/Other Mental health disorder Substance use disorder Father No problems noted. Mother No problems noted. Social History Housing: House Alcohol intake: current Alcohol intake frequency: a few times a month Alcohol type: wine Patient Tobacco Use Status: Never used Tobacco e-Cigarette/Vaping Use: Never Used Second Hand Smoke Exposure: No Substance Use Type: Marijuana service: No Current occupational status: employed Current occupational exposures/hazards: No Cognitive needs: No Hearing needs: No Vision needs: No Female Reproductive History Menstrual Age of Menarche: 12 Questionnaire PHQ-9 Over the last 2 weeks, how often have you been bothered by any of the following problems? 1. Little interest or pleasure in doing things: not at all 2. Feeling down, depressed, or hopeless: not at all 3. Trouble falling or staying asleep, or sleeping too much: not at all 4. Feeling tired or having little energy: not at all 5. Poor appetite or overeating: not at all 6. Feeling bad about yourself - or that you are a failure or have let yourself or your family down: not at all 7. Trouble concentrating on things, such as reading the newspaper or watching television: not at all 8. Moving or speaking so slowly that other people could have noticed. Or the o pposite - being so fidgety or restless that you have been moving around a lot more than usual: not at all 9. Thoughts that you would be better off or of hurting yourself in some way: not at all Total score: 0 Depression Screening Interpretation: Negative Depression Screening Done: Yes 60114 - PHQ-9 Billing: Yes Source: Developed by Drs. Allen Muñoz, Ana Maria Ghotra, You Leal and colleagues, with an educational rickie from [employer]. Thrive Questionnaire Date Thrive assessed: 12/22/22 AUDIT C Alcohol Use Questionnaire (AUDIT-C) 1. How often do you have a drink containing alcohol?: Monthly or less 2. How many drinks containing alcohol do you have on a typical day when you are drinking?: 1 or 2 3. How often do you have six or more drinks on one occasion?: Never Total Score: 1 Score Reviewed/Action Taken: No SHAJI-7 AMB Questionnaire SHAJI-7 Date SHAJI - 7 assessed: 12/26/23 Feeling nervous, anxious, or on edge: 1 = Several days Not being able to stop or control worryin = Not at all Worrying too much about different things: 1 = Several days Trouble relaxin = Not at all Being so restless that it is hard to sit still: 0 = Not at all Becoming easily annoyed or irritable: 0 = Not at all Feeling afraid as if something awful might happen: 0 = Not at all Total SHAJI-7 score (0-4 normal; 5-9 mild; 10-14 moderate; 15-21 severe): 2 Source: Developed by Drs. Allen Muñoz, Ana Maria Ghotra, You Leal and colleagues, with an educational rickie from [employer]. SHAJI-7 Assessment Billing SHAJI-7 Assessment Tool: SHAJI-7 Assessment 96960 Review of Systems Const All systems reviewed & are unremarkable except as noted in HPI and below Card Denies chest pain at rest, Denies chest pain with activity, Denies edema, Denies irregular heart rhythm, Denies claudication, Denies dyspnea, Denies dyspnea on exertion, Denies orthopnea, Denies paroxysmal nocturnal dyspnea and Denies slow heart rate Resp Denies cough, Denies dyspnea and Denies dyspnea on exertion Musc Denies atrophy, Denies deformity and Denies limited range of motion Physical exam (Primary Care) Vital Signs: Last Vital Signs BP 126/80 12/26/23 07:49 BMI result Body Mass Index 37.9 BMI Assessment/Plan discussion: High BMI High, discussed plan: lifestyle, weight reduction, dietary and physical activity Tobacco/Smoking Status: Tobacco use Status Tobacco use date assessed 12/26/23 12/26/23 07:55 Patient Tobacco Use Status Never used Tobacco 12/26/23 07:55 e-Cigarette/Vaping Use Never Used 12/26/23 07:55 PHQ-9: PHQ-9 Score PHQ-9: Total score 0 12/26/23 07:56 Depression Screening Interpretation: Negative Thrive Assessment: Date of Thrive Assessment Date Thrive assessed 12/22/22 12/26/23 07:55 HENMT Head: Yes normal to inspection, Yes normocephalic and Yes atraumatic Ears: external ears normal Eyes General: appearance normal, both eyes and all related structures Eyelids: Yes eyelids normal Conjunctivae: conjunctivae normal Neck Neck: Yes normal visual inspection and Yes supple Resp Effort & Inspection: normal respiratory effort Auscultation: clear to auscultation bilaterally Cardio Jugular venous distension: no JVD Rate: regular rate Rhythm: regular rhythm Heart sounds: S1 normal heart sound present and S2 normal heart sound present GI Inspection: Yes normal to inspection Palpation (GI): Soft to palpation and nontender Auscultation: normal bowel sounds Skin General skin exam: no rashes or lesions noted Neuro General: no focal motor deficits Extrem General: Yes full ROM Psych Appearance: grossly normal Assessment and Plan Assessment & Plan (1) Physical exam: Code(s): Z00.00 - Encounter for general adult medical examination without abnormal findings Plan: Repeat in a year. Orders: Orders T Spot TB Today Z11.1 - Encounter for screening for respiratory tuberculosis Coding Level of Care Code Est Pt Prev Care 18-39y(48139) Diagnoses Physical exam Z00.00 Additional Codes SHAJI-7 Assessment Billing - SHAJI-7 Assessment Tool: SHAJI-7 Assessment 14357 ([id number]) Time Spent (min) 31
[2023-12-26 07:49] VITALS: BP 126/80; BMI 37.9
== END 2023-12-26 08:14 | disposition home or self-care (01) ==
PROVIDERS: PCP Internal Medicine; Visit Provider Internal Medicine
DX: Z00.00 Encounter for general adult medical examination without abnormal findings (principal)
CPT/HCPCS: 99395

== ENCOUNTER 2023-12-29 10:51 | Outpatient (AMB) | payer OTHER, SELFPAY ==
--- NOTE | 2023-12-29 10:56 | AM.OFFWIN_ITS ---
Intake Vital Signs 12/29/23 10:57 Height 5 ft 5 in Weight 230 lb BMI 38.3 BP 124/80 Blood Pressure Location Rt brachial Position Sitting Pulse 67 Pulse Source Pulse Oximeter Temp 98.4 F Temp Source Oral Pulse Oximetry (%) 97 Oxygen Delivery Method Room Air Intake Visit Reasons: Urinary tract infection Intake Note: pt c/o Urinary frequency, bloated, abdominal pain, alot of pressure , Started this morning Patient Tobacco Use Status: Never used Tobacco Allergies Peanut (Diagnostic) Allergy (Severe, Uncoded 12/29/23 10:56) breathing difficulty, itching in throat peanuts Allergy (Severe, Uncoded 12/29/23 10:56) breathing difficulty, itching in throat seasonal Allergy (Mild, Uncoded 12/29/23 10:56) runny nose nut allergies Adverse Reaction (Severe, Uncoded 12/29/23 10:56) breathing difficulty, itching in throat Do you need a note to return to daycare/school/sports/work: Yes HPI HPI Comments History of Present Illness Details Patient is a 33-year-old female complaining of 1 day of abdominal pressure, lower abdominal burning, increased urgency of urination. She denies any fevers or blood in her urine or low back pain. [facility] Medical History Flu-like symptoms Back pain Obesity (BMI 30-39.9) ADHD (attention deficit hyperactivity disorder) Migraine Bronchitis Surgical History No significant past surgical history Family History (Updated 12/26/23 @ 08:08 by Vane Rivas MD) Maternal Grandfather Hypertension Maternal Grandmother Hypertension Maternal Aunt Breast cancer Family/Other Mental health disorder Substance use disorder Father No problems noted. Mother No problems noted. Social History Housing: House Alcohol intake: current Alcohol intake frequency: a few times a month Alcohol type: wine Patient Tobacco Use Status: Never used Tobacco e-Cigarette/Vaping Use: Never Used Second Hand Smoke Exposure: No Substance Use Type: Marijuana service: No Current occupational status: employed Current occupational exposures/hazards: No Cognitive needs: No Hearing needs: No Vision needs: No Female Reproductive History Menstrual Age of Menarche: 12 Review of Systems Const All systems reviewed & are unremarkable except as noted in HPI and below Physical Exam Const General: cooperative, healthy appearing, comfortable, no acute distress and well developed Orientation/consciousness: patient oriented x3 Limitations: no limitations HEENT Head: Yes normal to inspection Eyes General: appearance normal, both eyes and all related structures Neck Neck: Yes normal visual inspection and Yes full ROM Resp Effort & Inspection: normal respiratory effort and able to speak in complete sentences GI Inspection: Yes normal to inspection Palpation (GI): Soft to palpation and Tenderness to palpation present (GI) suprapubicly Skin General skin exam: no rashes or lesions noted Neuro General: patient oriented x3 Extrem General: Yes normal to inspection Results AMB Urinalysis, Automated UA Leukoctes 15 Al/uL Last Edit by Sandeep Walter CMA on 12/29/23 11:12 UA Nitrite Negative Last Edit by Sandeep Walter CMA on 12/29/23 11:12 UA Urobilinogen 0.2 mg/dL Last Edit by Sandeep Walter CMA on 12/29/23 11:12 UA Protein 0 mg/dL Last Edit by Sandeep Walter CMA on 12/29/23 11:12 UA pH 6.0 Last Edit by Sandeep Walter CMA on 12/29/23 11:12 UA Blood 0 Christian/uL Last Edit by Sandeep Walter CMA on 12/29/23 11:12 UA Specific Christine 1.005 Last Edit by Sandeep Walter CMA on 12/29/23 11:12 UA Ketone Negative Last Edit by Sandeep Walter CMA on 12/29/23 11:12 UA Bilirubin 0 mg/dL Last Edit by Sandeep Walter CMA on 12/29/23 11:12 UA Glucose 0 mg/dL Last Edit by Sandeep Walter CMA on 12/29/23 11:12 Assessment & Plan Assessment & Plan (1) UTI (urinary tract infection): Code(s): N39.0 - Urinary tract infection, site not specified Qualifiers: Urinary tract infection type: acute cystitis Hematuria presence: without hematuria Qualified Code(s): N30.00 - Acute cystitis without hematuria Plan: UA positive for leukocyte esterase. Sent prescription to pharmacy, recommended if she develops a fever to call her PCP or go to the ED. Plan See above Orders: Orders AMB Urinalysis Automated Today Z13.9 - Encounter for screening, unspecified Medications: New nitrofurantoin monohyd/m-cryst 100 mg (Macrobid) must administer with a meal/food 100 mg PO Q12H 5 days 10 caps 0RF Coding Level of Care Code Est Pt Level 3 (01767) Diagnoses Acute cystitis without hematuria N30.00 Urinary tract infection type: acute cystitis Hematuria presence: without hematuria
[2023-12-29 10:57] VITALS: BP 124/80; PULSE 67; TEMP 36.9; O2SAT 97; BMI 38.3
== END 2023-12-29 11:27 | disposition home or self-care (01) ==
PROVIDERS: PCP Internal Medicine; Visit Provider Physician Assistant
DX: N30.00 Acute cystitis without hematuria (principal); Z13.9 Encounter for screening, unspecified
CPT/HCPCS: 81003; 99213

== ENCOUNTER 2024-01-17 14:29 | Outpatient (AMB) | payer OTHER, SELFPAY ==
--- NOTE | 2024-01-17 14:30 | A.OFFVIS_ITS ---
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 Doing well with no concerns. Recently completed treatment for bladder infection. She tries to eat healthy and stays active with exercise. Goes to a [facility] for Tirepat[place], weight loss treatment. Regular monthly light menses w/Mirena. Currently is sexually active. She denies vaginal itching and irritation. STI screening offered; she declines. Denies family history of ovarian or colon cancer. FH breast cancer. Last pap smear 2021, negative. [facility] Medical History Flu-like symptoms Back pain Obesity (BMI 30-39.9) ADHD (attention deficit hyperactivity disorder) Migraine Bronchitis Surgical History No significant past surgical history Family History (Updated 12/26/23 @ 08:08 by Vane Rivas MD) Maternal Grandfather Hypertension Maternal Grandmother Hypertension Maternal Aunt Breast cancer Family/Other Mental health disorder Substance use disorder Father No problems noted. Mother No problems noted. Social History Housing: House Alcohol intake: current Alcohol intake frequency: a few times a month Alcohol type: wine Patient Tobacco Use Status: Never used Tobacco e-Cigarette/Vaping Use: Never Used Second Hand Smoke Exposure: No Substance Use Type: Marijuana service: No Current occupational status: employed Current occupational exposures/hazards: No Cognitive needs: No Hearing needs: No Vision needs: No Female Reproductive History Menstrual Age of Menarche: 12 control method: progestin IUCD (Mirena 12/2022) Total pregnancies: 1 Full term: 1 Number of Living Children: 1 Date of last pap smear: 05/24/21 (neg pap and hpv) Review of Systems Const All systems reviewed & are unremarkable except as noted in HPI and below Reports as per HPI Eyes Reports no additional complaints ENT Reports no additional complaints Card Reports no additional complaints Resp Reports no additional complaints GI Reports as per HPI and Reports no additional complaints Reports as per HPI Musc Reports no additional complaints Skin/Breast Reports as per HPI Neuro Reports no additional complaints Psych Reports no additional complaints Endo Reports no additional complaints Luis/Lymph Reports no additional complaints Aller/Immun Reports no additional complaints Physical Exam Const General: cooperative, healthy appearing, no acute distress, well developed and alert Orientation/consciousness: patient oriented x3 HEENT Head: Yes normal to inspection Eyes General: appearance normal, both eyes and all related structures Neck Neck: Yes normal visual inspection Thyroid: Thyroid normal Chest Chest palpation & inspection: normal inspection of the chest and other (no puckering, dimpling, peau de orange, retraction, discharge, masses) Breast/axilla inspection: normal inspection of the breasts Breast/axilla palpation: normal palpation of the breasts Resp Effort & Inspection: normal respiratory effort GI Inspection: Yes normal to inspection Palpation (GI): Soft to palpation Rectal Exam - Female: deferred General: Yes bladder normal to palpation External Female Exam: normal external appearance and normal appearance of the urethra Speculum Exam - Vagina: normal appearance of the vagina, normal palpation and normal vaginal discharge Speculum Exam - Cervix: normal appearance of the cervix, normal palpation and Other cervical findings present (IUD strings at the os) Bimanual exam- vagina & uterus: normal bimanual exam, normal palpation, uterine size normal, bladder normal to palpation, normal palpation and non-tender Bimanual Exam- Adnexa, other: no masses Skin General skin exam: no rashes or lesions noted Rashes: no rashes Neuro General: patient oriented x3 Cognition (Neuro): normal cognition Extrem General: Yes normal to inspection Psych Attitude: cooperative Thought process: Normal thought process present Assessment & Plan Assessment & Plan (1) Well woman exam with routine gynecological exam: Code(s): Z01.419 - Encounter for gynecological examination (general) (routine) without abnormal findings Category: Medical Plan Discussed: Current recommendations for pap smears per ASCCP guidelines. Breast awareness and periodic breast exams. Maintain a healthy lifestyle including a well balanced diet and routine exercise. Patient verbalizes understanding and agrees to the plan of care. She was given opportunity to ask questions and all questions were answered to the best of my ability. RTO in one year for annual talent consultant examination. This note is constructed using voice recognition software. While every effort has been made to ensure accuracy, laundry marker supervisor errors may have been included. Coding Level of Care Code Est Pt Prev Care 18-39y(89437) Diagnoses Well woman exam with routine gynecological exam Z01.419
[2024-01-17 14:31] VITALS: BP 106/74; BMI 37.3
== END 2024-01-17 15:01 | disposition home or self-care (01) ==
PROVIDERS: PCP Internal Medicine; Visit Provider Advanced Practice Midwife
DX: Z01.419 Encounter for gynecological examination (general) (routine) without abnormal findings (principal)
CPT/HCPCS: 99395

== ENCOUNTER → 2024-01-17 14:29 | Outpatient (BNVA) | payer OTHER, SELFPAY | PROVIDERS: PCP Internal Medicine; Visit Provider Advanced Practice Midwife ==

== ENCOUNTER 2024-01-18 07:46 | Outpatient (REF) | payer OTHER, SELFPAY ==
[2024-01-18 08:04] LABS: MANUAL DIFF FLAG NO
[2024-01-18 08:24] LABS: Basophils Absolute Auto 0.1 X10*3/uL (0.0-0.2); Basophils Percent Auto 0.9 % (0-2); Eosinophils Absolute Auto 0.2 X10*3/uL (0.0-0.4); Eosinophils Percent Auto 2.9 % (0-4); Hematocrit 41.3 % (37.0-47.0); Hemoglobin 14.2 g/dl (12.0-16.0); Imm Gran Abs Auto 0.02 X10*3/uL (0.00-0.03); Imm Gran Pct Auto 0.3 % (0.0-0.4); Lymphocytes Absolute Auto 1.8 X10*3/uL (1.2-4.9); Lymphocytes Percent Auto 23.7 % (20-40); Mean Corpuscular HGB Conc 34.4 g/dl (31.0-35.0); Mean Corpuscular Hemoglobin 30.3 pg (27.0-33.0); Mean Corpuscular Volume 88.1 fL (80.0-98.0); Mean Platelet Volume 9.1 fL (9.4-12.3); Monocytes Absolute Auto 0.4 X10*3/uL (0.1-1.2); Monocytes Percent Auto 5.7 % (2-11); Neutrophils Percent Auto 66.5 % (45-73); Platelet Count 283 X10*3/uL (160-400); Red Blood Count 4.69 X10*6/uL (4.20-5.50); Red Cell Distribution Width 12.1 % (11.0-16.0); White Blood Count 7.6 X10*3/uL (4.8-10.8)
[2024-01-18 08:58] LABS: Alanine Aminotransferase 21 U/L (0-31); Albumin Level 3.9 g/dL (3.5-5.0); Alkaline Phosphatase 64 U/L (39-117); Anion Gap 11 (12-20); Aspartate Amino Transferase 15 U/L (5-31); Bilirubin Total 0.4 mg/dL (0.0-1.0); Blood Urea Nitrogen 11 mg/dL (9-16); Calcium 9.2 mg/dL (8.4-10.2); Carbon Dioxide 22 mmol/L (22-29); Chloride 111 mmol/L (96-108); Cholesterol 137 mg/dL (<200); Estimated Glomerular Filt Rate > 60; Glucose Fasting 93 mg/dL (60-99); HDL Cholesterol 36 mg/dL (>40); LDL Cholesterol Calculated 87 mg/dL (<100); Sodium 140 mmol/L (135-145); Total Protein 6.6 g/dL (6.5-8.0); Triglycerides 72 mg/dL (<150)
[2024-01-20 22:08] LABS: TS Negative Control Passed; TS Panel A 3; TS Panel B 2; TS Positive Control Passed; TSpotTB Negative (Negative)
== END 2024-01-18 07:47 | disposition home or self-care (01) ==
LOC: HO.LAB 07:46
PROVIDERS: PCP Internal Medicine; Visit Provider Internal Medicine
DX: Z00.00 Encounter for general adult medical examination without abnormal findings (principal); Z11.1 Encounter for screening for respiratory tuberculosis; R00.9 Unspecified abnormalities of heart beat
CPT/HCPCS: 36415; 80053; 80061; 84443; 85025; 86481

== ENCOUNTER 2024-05-09 15:46 | Outpatient (REF) | payer OTHER, SELFPAY ==
[2024-05-10 03:37] LABS: CT PCR NOT DETECTED (Not Detect.); NG PCR NOT DETECTED (Not Detect.)
[2024-05-10 13:12] LABS: Bacterial Vaginosis PCR POSITIVE (Negative); Candida Group PCR NOT DETECTED (Not Detect); Candida glab krusei PCR NOT DETECTED (Not Detect); Trichomonas vaginalis PCR NOT DETECTED (Not Detect)
== END 2024-05-09 15:47 | disposition home or self-care (01) ==
LOC: HO.LAB 15:46
PROVIDERS: PCP Internal Medicine; Visit Provider Advanced Practice Midwife
DX: N89.8 Other specified noninflammatory disorders of vagina (principal)
CPT/HCPCS: 0352U; 87491; 87591

== ENCOUNTER 2024-05-09 15:46 | Outpatient (AMB) | payer OTHER, SELFPAY ==
--- NOTE | 2024-05-09 15:48 | A.OFFVIS_ITS ---
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 She denies any pelvic pain or urinary symptoms, admits to only voiding about twice a day during the work hours, has a about 4 glasses of fluids during the daytime. No new intimate partner. She is concerned when she uses an IUD she is more prone to BV infections. [facility] Medical History Flu-like symptoms Back pain Obesity (BMI 30-39.9) ADHD (attention deficit hyperactivity disorder) Migraine Bronchitis Surgical History No significant past surgical history Family History Maternal Grandfather Hypertension Maternal Grandmother Hypertension Maternal Aunt Breast cancer Family/Other Mental health disorder Substance use disorder Father No problems noted. Mother No problems noted. Social History Housing: House Alcohol intake: current Alcohol intake frequency: a few times a month Alcohol type: wine Patient Tobacco Use Status: Never used Tobacco e-Cigarette/Vaping Use: Never Used Second Hand Smoke Exposure: No Substance Use Type: Marijuana service: No Current occupational status: employed Current occupational exposures/hazards: No Cognitive needs: No Hearing needs: No Vision needs: No Female Reproductive History Menstrual Age of Menarche: 12 Review of Systems Const All systems reviewed & are unremarkable except as noted in HPI and below Physical Exam Vital Signs: Last Vital Signs BP 110/62 05/09/24 15:50 Const General: cooperative, healthy appearing and no acute distress Orientation/consciousness: patient oriented x3 GI Inspection: Yes normal to inspection Palpation (GI): Soft to palpation and Other GI palpation findings present (Nontender) Rectal Exam - Female: visual inspection normal General: Yes bladder normal to palpation External Female Exam: normal appearance of the urethra Speculum Exam - Vagina: normal appearance of the vagina, normal palpation and abnormal vaginal discharge (Slight green blood-tinged) Speculum Exam - Cervix: normal appearance of the cervix, normal palpation and Other cervical findings present (IUD strings at the os) Bimanual exam- vagina & uterus: normal bimanual exam, normal palpation, uterine size normal, bladder normal to palpation, normal palpation, uterine shape normal and non-tender Bimanual Exam- Adnexa, other: normal adnexae Neuro General: patient oriented x3 Assessment & Plan Assessment & Plan (1) Vaginal discharge: Code(s): N89.8 - Other specified noninflammatory disorders of vagina Plan Discussed: BV panel and GC chlamydia obtained await results for final plan of care. Discuss the role of probiotics with gut in Women's Health. She has information on boric acid. Plan to treat with Metrogel due to the upcoming holiday. The patient expressed understanding and agreement with the plan of care. All of her questions and concerns were addressed to the best of my ability. Annual exam scheduled 01/2025. This note is constructed using voice recognition software. While every effort has been made to ensure accuracy, picker box operator errors may have been included. Orders: Orders Bacterial Vaginosis Panel Today N89.8 - Other specified noninflammatory disorders of vagina CT NG by PCR Today N89.8 - Other specified noninflammatory disorders of vagina Medications: New metronidazole 0.75%(37.5mg/5gram) 1 appful vaginal DAILY 5 days 70 grams 0RF Coding Level of Care Code Est Pt Level 3 (17561) Diagnoses Vaginal discharge N89.8
[2024-05-09 15:50] VITALS: BP 110/62
== END 2024-05-09 16:08 | disposition home or self-care (01) ==
LOC: HO.HWS 15:46
PROVIDERS: PCP Internal Medicine; Visit Provider Advanced Practice Midwife
DX: N89.8 Other specified noninflammatory disorders of vagina (principal)
CPT/HCPCS: 99213

== ENCOUNTER 2024-05-09 16:04 | Outpatient (REF) | payer OTHER, SELFPAY | END 2024-05-09 16:05 | disposition home or self-care (01) | LOC: HO.LNP 16:04 | PROVIDERS: Visit Provider Advanced Practice Midwife | DX: Z13.89 Encounter for screening for other disorder (principal) ==

== ENCOUNTER 2024-06-01 19:10 | Emergency (ER) | payer OTHER, SELFPAY ==
--- NOTE | ~2024-06-01 | XR_ITS ---
CLINICAL HISTORY: chest pain, sob 2 view chest x-ray. Comparison: None Findings: Lungs are clear without acute infiltrates. No pneumothorax. Heart size normal. No acute bony abnormalities. Impression: No acute processes This document has been electronically signed by: Ricky Rodriguez MD on 06/01/2024 20:26:42
[2024-06-01 19:19] VITALS: BP 136/95; PULSE 114; RESP 19; TEMP 37.1; O2SAT 100; BMI 36.0
--- NOTE | 2024-06-01 19:25 | ECG_ITS ---
Test Reason : GRES Blood Pressure : */* mmHG Vent. Rate : 104 BPM Atrial Rate : 104 BPM P-R Int : 182 ms QRS Dur : 82 ms QT Int : 328 ms P-R-T Axes : 25 10 53 degrees QTcB Int : 431 ms Sinus tachycardia Anterior infarct , age undetermined - changes more likely from lead placement/body habitus Abnormal ECG When compared with ECG of 05-Aug-2022 15:04, No significant change was found Referred By: Christina Sol Electronically Signed By: ANASTASIIA RODRIGUEZ
--- NOTE | 2024-06-01 19:26 | ED.SOB ---
HPI - SOB/Dyspnea General Chief Complaint: Dyspnea Stated Complaint: diff breathing Time Seen by Provider: 06/01/24 23:18 History of Present Illness ED Provider: Deacon FUENTES Narrative: The patient is a 33-year-old female who says that she was diagnosed with COVID at the end of April. She says that she has not felt well since then. She comes to the emergency room today because she feels that she is having a sense of a racing heart and a sense of dyspnea on exertion that she has never had before. She says she feels like she can not do any of the regular tasks that she normally does without feeling short of breath. She also notes that her heart rate has been very rapid recently and her blood pressure has been higher than usual. She has not had any pain or swelling in her legs. She has an IUD. She is not on oral contraceptive. She has not had any recent fevers. Related Data Home Medications ?Medication ?Instructions ?Recorded ?Confirmed levonorgestrel 21 mcg/24 hr (up to intrauterine 02/02/23 12/26/23 8 years) 52 mg intrauterine device (Mirena) methylphenidate HCl 54 mg 54 mg PO QAM 12/26/23 12/26/23 tablet,extended release 24 hr tirzepatide 2.5 mg/0.5 mL 2.5 mg subcut QWEEK 12/26/23 12/26/23 subcutaneous pen injector Previous Rx's ?Medication ?Instructions ?Recorded metronidazole 0.75 % (37.5 mg/5 1 appful vaginal DAILY 5 days #70 05/09/24 gram) vaginal gel grams albuterol sulfate 90 mcg/actuation 2 puff inhalation Q4-6H PRN 06/02/24 aerosol inhaler shortness of breath or wheezing #8.5 grams prednisone 20 mg tablet 20 mg PO DAILY #12 tabs 06/02/24 Allergies Allergy/AdvReac Type Severity Reaction Status Date / Time Peanut (Diagnostic) Allergy Severe breathing Uncoded 06/01/24 19:20 difficulty, itching in throat peanuts Allergy Severe breathing Uncoded 06/01/24 19:20 difficulty, itching in throat seasonal Allergy Mild runny nose Uncoded 06/01/24 19:20 nut allergies AdvReac Severe breathing Uncoded 06/01/24 19:20 difficulty, itching in throat Review of Systems Review of Systems: Yes all other systems are reviewed and are negative [facility] Past Medical History Medical History Flu-like symptoms Back pain Obesity (BMI 30-39.9) ADHD (attention deficit hyperactivity disorder) Migraine Bronchitis Surgical History No significant past surgical history Family History Family History Maternal Grandfather Hypertension Maternal Grandmother Hypertension Maternal Aunt Breast cancer Family/Other Mental health disorder Substance use disorder Father No problems noted. Mother No problems noted. Social History Social History Housing: House Alcohol intake: current Alcohol intake frequency: a few times a month Alcohol type: wine Patient Tobacco Use Status: Never used Tobacco e-Cigarette/Vaping Use: Never Used Second Hand Smoke Exposure: No Substance Use Type: Marijuana Advance Directives: No Advance Directives Information Provided: No Do you have a plan to hurt others: No Plan service: No Current occupational status: employed Current occupational exposures/hazards: No Cognitive needs: No Hearing needs: No Vision needs: No Physical Exam Vital Signs: Vital Signs: Last Vital Signs Temp 98.2 F 06/02/24 01:53 Pulse 93 06/02/24 01:57 Resp 16 06/02/24 01:57 BP 137/99 H 06/02/24 01:53 Pulse Ox 100 06/02/24 01:53 O2 Del Method Room Air 06/02/24 01:53 BMI result Body Mass Index 36.0 Const: Other: the patient is awake and alert. She does not appear obviously toxic or ill although she sometimes seemed to be slightly short of breath when talking. She was not exhibiting any increased work of breathing however. HEENT: Other: The face is symmetrical. Mucous membranes moist. Eyes: Other: Pupils are round equal, conjunctivae are clear, extraocular movements intact Neck: Neck: Yes full ROM and Yes no lymphadenopathy Resp: Other: No increased work of breathing. I felt that there might be some subtle wheezes Throughout both lung silver. Cardio: Rate: tachycardic Rhythm: regular rhythm Heart sounds: S1 normal heart sound present and S2 normal heart sound present GI: Other: Abdomen is soft and nontender Skin: General skin exam: no rashes or lesions noted Neuro: Other: the patient is awake and alert with a normal mental status. Normal cranial nerves. Moving extremities normally. Extrem: Other: No calf swelling or tenderness. No peripheral edema. No asymmetry Course Course Course Narrative: This is a Rapid Medical Examination (RME) performed by Mary Sol PA-C in triage. Full HPI, ROS, assessment and treatment plan per primary provider in the Main ED. 33 yo female here for eval of dyspnea and pleuritic chest pain x2 days. admits recent covid diagnosis 2 weeks ago. her friend who is a nurse checked her vitals earlier today - her BP and HR were both elevated. reports dry cough. no hemoptysis. Plan: labs, viral swabs, cxr, ekg Medications Administered Discontinued Medications Generic Name Dose Route Start Last Admin Trade Name Freq PRN Reason Stop Dose Admin Albuterol Sulfate 4 puff 06/02/24 01:28 06/02/24 01:55 Albuterol Sulfate 90 Mcg 8 Gm Inhaler INHALE 06/02/24 01:29 2 puff ONCE ONE Administration Albuterol/Ipratropium 3 ml 06/02/24 00:38 06/02/24 00:49 Albuterol/Iprat 2.5/0.5mg 3 Ml Ampul.Neb INHALE 06/02/24 00:39 3 ml ONCE ONE Administration Ibuprofen 600 mg 06/02/24 01:12 06/02/24 01:18 Ibuprofen 600 Mg Tablet PO 06/02/24 01:13 600 mg ONCE ONE Administration Prednisone 60 mg 06/02/24 01:28 06/02/24 01:50 Prednisone 20 Mg Tablet PO 06/02/24 01:29 60 mg ONCE ONE Administration Medical Decision Making Medical Decision Making MDM Narrative: the patient is a 33-year-old female who presents for evaluation of exertional dyspnea that has been getting worse since she was diagnosed with the COVID a few weeks ago. She does not have any history of asthma. She his tachycardic. Chest x-ray is negative. Labs were unremarkable. No elevated troponin. Given her tachycardia and her complaints a D-dimer was sent that was normal. She was then treated with a bronchodilator updraft treatment with some improvement in her symptoms. She does not have a history of asthma but I think she is having some degree of reactive airways disease today. She was instructed in the use of an albuterol inhaler and placed on a course of prednisone. She should follow up with her regular doctor. Lab Data 06/01/24 19:50 06/01/24 19:50 Labs: Lab Results 06/01/24 Range/Units 19:50 WBC 9.5 (4.8-10.8) X10*3/uL RBC 4.73 (4.20-5.50) X10*6/uL Hgb 14.4 (12.0-16.0) g/dl Hct 41.5 (37.0-47.0) % MCV 87.7 (80.0-98.0) fL MCH 30.4 (27.0-33.0) pg MCHC 34.7 (31.0-35.0) g/dl RDW 12.0 (11.0-16.0) % Plt Count 290 (160-400) X10*3/uL MPV 9.0 L (9.4-12.3) fL Immature Gran % (Auto) 0.2 (0.0-0.4) % Neut % (Auto) 69.6 (45-73) % Lymph % (Auto) 24.4 (20-40) % Grand % (Auto) 4.4 (2-11) % Eos % (Auto) 0.8 (0-4) % Baso % (Auto) 0.6 (0-2) % Lymph # (Auto) 2.3 (1.2-4.9) X10*3/uL Grand # (Auto) 0.4 (0.1-1.2) X10*3/uL Eos # (Auto) 0.1 (0.0-0.4) X10*3/uL Baso # (Auto) 0.1 (0.0-0.2) X10*3/uL Abs Immat Gran (auto) 0.02 (0.00-0.03) X10*3/uL Absolute Neuts (auto) 6.6 (2.0-8.3) x10*3/uL Absolute Nucleated RBC 0.000 (0.0-0.012) X10*3/uL Nucleated RBC % (auto) 0.0 (0.0-0.2) /100WBC PT 11.5 (10.9-12.4) SEC INR 1.0 (0.9-1.1) D-Dimer High Sensitivty < 150 NG/ML Sodium 142 (135-145) mmol/L Potassium 4.0 (3.3-5.1) mmol/L Chloride 116 H (96-108) mmol/L Carbon Dioxide 22 (22-29) mmol/L Anion Gap 8 L (12-20) BUN 13 (9-16) mg/dL Creatinine 0.76 (0.5-1.4) mg/dL Estim Creat Clear Calc 122.1 Estimated GFR > 60 Random Glucose 117 H (60-115) mg/dL Calcium 9.0 (8.4-10.2) mg/dL Magnesium 2.2 (1.6-2.6) mg/dL Total Bilirubin 0.3 (0.0-1.0) mg/dL AST 18 (5-31) U/L ALT 24 (0-31) U/L Alkaline Phosphatase 73 (39-117) U/L Troponin I High Sens < 2.7 (<3.5-17.0) ng/L Total Protein 7.0 (6.5-8.0) g/dL Albumin 4.0 (3.5-5.0) g/dL Influenza Type A (PCR) NEGATIVE (Negative) Influenza Type B (PCR) NEGATIVE (Negative) RSV RNA Qual (PCR) NEGATIVE (Negative) SARS-CoV-2 RNA (RT-PCR) NEGATIVE (Negative) Discharge Plan Discharge Clinical Impression: Shortness of breath, Wheezing Patient Disposition: Home, Self-Care Additional Instructions: I think your symptoms might be some form of a wheezing bronchitis has a consequence of the COVID infection. All your other testing in the emergency room is very reassuring. Please take the prednisone once a day as prescribed. Use the albuterol inhaler with the spacer (AeroChamber) 2 puffs every 4-6 hours as needed. Drink lot of fluids. Make a follow up appointment with your regular doctor soon for re-evaluation and further advice. Return to the emergency room if worse. Prescriptions: New albuterol sulfate 90 mcg/actuation HFA aerosol inhaler 2 puff inhalation Q4-6H PRN (Reason: shortness of breath or wheezing) Qty: 8.5 0RF prednisone 20 mg tablet 20 mg PO DAILY Qty: 12 0RF Rx Instructions: Take 3 tablets by mouth daily for 2 days then take 2 tablets by mouth daily for 3 days. No Action methylphenidate HCl 54 mg tablet extended release 24hr 54 mg PO QAM tirzepatide 2.5 mg/0.5 mL pen injector 2.5 mg subcut QWEEK Mirena 21 mcg/24 hours (8 yrs) 52 mg intrauterine device intrauterine metronidazole 0.75 % (37.5mg/5 gram) gel 1 appful vaginal DAILY 5 Days Qty: 70 0RF Referrals: Vane Carranza MD [Primary Care Provider] - (Reactive airways disease) Interventions: ED Discharge Assessment Last Done: 06/02/24 01:53 Discharge Date/Time: 06/02/24 02:04 Print Language: Wolof
--- NOTE | 2024-06-01 19:53 | MHC.EDTECH ---
Patient brought into triage area,EKG taken per order,signed by provider,labs and sars/flu/rsv obtained and sent to lab.
[2024-06-01 20:12] LABS: MANUAL DIFF FLAG NO
[2024-06-01 20:13] LABS: Basophils Absolute Auto 0.1 X10*3/uL (0.0-0.2); Basophils Percent Auto 0.6 % (0-2); Eosinophils Absolute Auto 0.1 X10*3/uL (0.0-0.4); Eosinophils Percent Auto 0.8 % (0-4); Hematocrit 41.5 % (37.0-47.0); Hemoglobin 14.4 g/dl (12.0-16.0); Imm Gran Abs Auto 0.02 X10*3/uL (0.00-0.03); Imm Gran Pct Auto 0.2 % (0.0-0.4); Lymphocytes Absolute Auto 2.3 X10*3/uL (1.2-4.9); Lymphocytes Percent Auto 24.4 % (20-40); Mean Corpuscular HGB Conc 34.7 g/dl (31.0-35.0); Mean Corpuscular Hemoglobin 30.4 pg (27.0-33.0); Mean Corpuscular Volume 87.7 fL (80.0-98.0); Monocytes Absolute Auto 0.4 X10*3/uL (0.1-1.2); Monocytes Percent Auto 4.4 % (2-11); Neutrophils Absolute Auto 6.6 x10*3/uL (2.0-8.3); Neutrophils Percent Auto 69.6 % (45-73); Platelet Count 290 X10*3/uL (160-400); Red Blood Count 4.73 X10*6/uL (4.20-5.50); White Blood Count 9.5 X10*3/uL (4.8-10.8)
[2024-06-01 20:23] LABS: Prothrombin Time 11.5 SEC (10.9-12.4)
[2024-06-01 20:34] LABS: Alanine Aminotransferase 24 U/L (0-31); Alkaline Phosphatase 73 U/L (39-117); Anion Gap 8 (12-20); Aspartate Amino Transferase 18 U/L (5-31); Bilirubin Total 0.3 mg/dL (0.0-1.0); Blood Urea Nitrogen 13 mg/dL (9-16); Carbon Dioxide 22 mmol/L (22-29); Chloride 116 mmol/L (96-108); Creatinine Clr Calc Pharmacy 122.1; Estimated Glomerular Filt Rate > 60; Glucose Random 117 mg/dL (60-115); Magnesium 2.2 mg/dL (1.6-2.6); Sodium 142 mmol/L (135-145)
[2024-06-01 20:41] LABS: Troponin-I High Sensitivity < 2.7 ng/L (<3.5-17.0)
[2024-06-01 20:49] LABS: Influenza A PCR NEGATIVE (Negative); Influenza B PCR NEGATIVE (Negative); Resp Syncy Virus RNA Qual PCR NEGATIVE (Negative); SARS COV2 PCR INHOUSE NEGATIVE (Negative)
[2024-06-02] VITALS: BP 137/99; PULSE 80; RESP 18; TEMP 36.8; O2SAT 100
[2024-06-02 00:18] LABS: D Dimer High Sensitivity < 150 NG/ML
[2024-06-02] MEDS: Albuterol/Iprat 2.5/0.5MG 3 ML AMPUL.NEB INHALE (00:49)
[2024-06-02 00:57] VITALS: PULSE 94; RESP 16; O2SAT 98
--- NOTE | 2024-06-02 01:13 | PC.NURSE ---
pt requests medication for PAYAN
[2024-06-02] MEDS: Ibuprofen 600 MG TABLET PO (01:18)
[2024-06-02] MEDS: predniSONE 20 MG TABLET 60 MG PO (01:50)
[2024-06-02 01:53] VITALS: BP 137/99; PULSE 94; RESP 16; TEMP 36.8; O2SAT 100
[2024-06-02] MEDS: Albuterol Sulfate 90 MCG 8 GM INHALER 4 PUFF INHALE (01:55)
[2024-06-02 01:57] VITALS: PULSE 93; RESP 16; O2SAT 94
== END 2024-06-02 02:04 | disposition home or self-care (01) ==
PROVIDERS: Physician Assistant Medical; Emergency Provider Emergency Medicine; PCP Internal Medicine
DX: R06.02 Shortness of breath (principal); R06.2 Wheezing; R00.0 Tachycardia, unspecified; R06.00 Dyspnea, unspecified; R05.9 Cough, unspecified; Z03.818 Encounter for observation for suspected exposure to other biological agents ruled out
CPT/HCPCS: 0241U; 36415; 71046; 80053; 83735; 84484; 85025; 85379; 85610; 93005; 94640; 99284

== ENCOUNTER → 2024-06-01 19:25 | Outpatient (BNV) | payer OTHER, SELFPAY | PROVIDERS: PCP Internal Medicine; Visit Provider Radiology Diagnostic Radiology | DX: R07.9 Chest pain, unspecified (principal) | CPT/HCPCS: 71046 ==

== ENCOUNTER → 2024-06-01 19:25 | Outpatient (BNV) | payer OTHER, SELFPAY | PROVIDERS: Emergency Provider Emergency Medicine; PCP Internal Medicine; Visit Provider Internal Medicine | DX: R00.0 Tachycardia, unspecified (principal) | CPT/HCPCS: 93010 ==

== ENCOUNTER 2024-12-31 07:13 | Outpatient (REF) | payer OTHER, SELFPAY ==
--- OUTSIDE RECORDS SUMMARY | 2024-12-31 07:15 | XMS_ITS | Continuity of Care Document ---
Author Organization [facility] Address [address] [id number] Insurance Providers Payer Plan Claims Address Claims Phone Policy Number Group Number Relation Employer Guarantor Name Guarantor Guarantor Address Guarantor Phone Claudia quinonez BACAnamika Galeas Allian leonela wall BACO Commu n Allia nce [id number] [phone] [id number] Problems Condition ICD9 code ICD10 code SNOMED code Start Date End Date S tatus Encounter for screening for other metabolic disorders Z13.228 Results No Results Allergies, adverse reactions, alerts No known allergies and adverse reactions Medications No administered medications reported Vital Signs No vital signs reported Social History No smoking Hx information available
[2024-12-31 08:30] LABS: Alanine Aminotransferase 19 U/L (0-31); Albumin Level 4.1 g/dL (3.5-5.0); Alkaline Phosphatase 67 U/L (39-117); Anion Gap 12 (12-20); Aspartate Amino Transferase 30 U/L (5-31); Blood Urea Nitrogen 13 mg/dL (9-16); Calcium 8.5 mg/dL (8.4-10.2); Carbon Dioxide 22 mmol/L (22-29); Chloride 111 mmol/L (96-108); Cholesterol 137 mg/dL (<200); Estimated Glomerular Filt Rate > 60; HDL Cholesterol 37 mg/dL (>40); Potassium 3.7 mmol/L (3.3-5.1); Sodium 141 mmol/L (135-145); Total Protein 6.5 g/dL (6.5-8.0); Triglycerides 115 mg/dL (<150)
[2024-12-31 09:07] LABS: HBc Num1 0.03 S/CO (0.00-0.79); HIV Num 1 0.07 S/CO (0.00-0.99); Syphilis Screen Nonreactive (Nonreactive); ~HepC Num1 0.08 S/CO (0.00-0.79); ~Hepatitis C Antibody Nonreactive (Nonreactive)
== END 2024-12-31 07:14 | disposition home or self-care (01) ==
LOC: HO.LAB 07:13
PROVIDERS: Absent Provider Advanced Practice Midwife; PCP Internal Medicine; Visit Provider Internal Medicine
DX: Z00.00 Encounter for general adult medical examination without abnormal findings (principal); Z11.4 Encounter for screening for human immunodeficiency virus [HIV]; L98.9 Disorder of the skin and subcutaneous tissue, unspecified; M79.642 Pain in left hand; M79.641 Pain in right hand; Z20.2 Contact with and (suspected) exposure to infections with a predominantly sexual mode of transmission; E78.5 Hyperlipidemia, unspecified
CPT/HCPCS: 36415; 80053; 80061; 86704; 86780; 86803; 87389; 96127

== ENCOUNTER 2024-12-31 07:30 | Outpatient (AMB) | payer OTHER, SELFPAY ==
[2024-12-31 07:31] VITALS: BP 122/78; PULSE 82; O2SAT 98; BMI 35.8
--- NOTE | 2024-12-31 07:31 | A.OFFPC_ITS ---
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 Accompanied by: Self / Same As Patient Allergies Peanut (Diagnostic) Allergy (Severe, Uncoded 12/31/24 07:41) breathing difficulty, itching in throat peanuts Allergy (Severe, Uncoded 12/31/24 07:41) breathing difficulty, itching in throat seasonal Allergy (Mild, Uncoded 12/31/24 07:41) runny nose nut allergies Adverse Reaction (Severe, Uncoded 12/31/24 07:41) breathing difficulty, itching in throat Medication List - Last Reconciled 12/31/24 by Vane Rivas MD albuterol sulfate 90 mcg/actuation 2 puffs inhalation Q4-6H PRN levonorgestrel (Mirena) intrauterine methylphenidate HCl 20 mg PO DAILY tirzepatide 2.5 mg subcut QWEEK Tobacco use date assessed: 12/31/24 Dental Screening Dental Screen Date: 12/31/24 Did you have a dental visit in the last 12 months?: No Did you have a dental problem in the last 6 months where you did not have access to dental care?: No Was dental information given to patient?: Patient has dentist HPI HPI Comments History of Present Illness Details The patient is a 34-year-old female presenting for a physical examination and preventative care. She has a history of seasonal allergies and a peanut allergy, which are currently well-managed. Following a severe COVID-19 infection in May, she reports ongoing joint pain in her hands, described as stiffness and slow reaction, without weakness. She has not yet sought rheumatology consultation for this condition. Also has skin lesion and would like Dermatology referral. The patient has experienced a rapid weight loss of about 10 pounds, attributed to dietary modifications and increased physical activity, attending the gym regularly. Her preventative care measures include a Pap smear in 2021 with negative HPV results and a Tdap vaccination in 2018. [facility] Medical History (Updated 12/31/24 @ 08:00 by Vane Rivas MD) Flu-like symptoms Back pain Obesity (BMI 30-39.9) ADHD (attention deficit hyperactivity disorder) Migraine Bronchitis Surgical History No significant past surgical history Family History Maternal Grandfather Hypertension Maternal Grandmother Hypertension Maternal Aunt Breast cancer Family/Other Mental health disorder Substance use disorder Father No problems noted. Mother No problems noted. Social History Housing: House Alcohol intake: current Alcohol intake frequency: a few times a month Alcohol type: wine Patient Tobacco Use Status: Never used Tobacco Tobacco use type: Cigarette e-Cigarette/Vaping Use: Never Used Second Hand Smoke Exposure: Yes Substance Use Type: Marijuana service: No Current occupational status: employed Current occupational exposures/hazards: No Cognitive needs: No Hearing needs: No Vision needs: No Female Reproductive History Menstrual Age of Menarche: 12 Questionnaire PHQ-9 Over the last 2 weeks, how often have you been bothered by any of the following problems? 1. Little interest or pleasure in doing things: not at all 2. Feeling down, depressed, or hopeless: not at all 3. Trouble falling or staying asleep, or sleeping too much: not at all 4. Feeling tired or having little energy: not at all 5. Poor appetite or overeating: not at all 6. Feeling bad about yourself - or that you are a failure or have let yourself or your family down: not at all 7. Trouble concentrating on things, such as reading the newspaper or watching television: not at all 8. Moving or speaking so slowly that other people could have noticed. Or the opposite - being so fidgety or restless that you have been moving around a lot more than usual: not at all 9. Thoughts that you would be better off or of hurting yourself in some way: not at all Total score: 0 Depression Screening Interpretation: Negative Depression Screening Done: Yes 21183 - PHQ-9 Billing: Yes Source: Developed by Drs. Allen Muñoz, Ana Maria Ghotra, You Leal and colleagues, with an educational rickie from [employer] Thrive Questionnaire Date Thrive assessed: 12/24/24 I am a: Patient What is your living situation today?: I have a steady place to live Within the past 12 months, did the food you bought not last and you didn't have the money to get more?: Never true Within the past 12 months, did you worry whether your food would run out before you got money to buy more?: Never true Do you have trouble paying for medicines?: No Do you have trouble getting transportation to medical appointments?: No Do you have trouble paying your heating and electricity bill?: No Do you have trouble taking care of your child, family member or friend?: No Do you have trouble with day-to-day activities such as bathing, preparing meals, shopping, managing finances, etc.?: No Are you currently unemployed and looking for a job?: No Are you interested in more education?: No Please select the resources that you would like help with: None Currently or been in a relationship where the following occur: I choose not to answer THRIVE Score: 0 AUDIT C Alcohol Use Questionnaire (AUDIT-C) 1. How often do you have a drink containing alcohol?: 2-4 times a month 2. How many drinks containing alcohol do you have on a typical day when you are drinking?: 1 or 2 3. How often do you have six or more drinks on one occasion?: Monthly Total Score: 4 SHAJI-7 AMB Questionnaire SHAJI-7 Date SHAJI - 7 assessed: 12/31/24 Feeling nervous, anxious, or on edge: 0 = Not at all Not being able to stop or control worryin = Not at all Worrying too much about different things: 0 = Not at all Trouble relaxin = Not at all Being so restless that it is hard to sit still: 0 = Not at all Becoming easily annoyed or irritable: 0 = Not at all Feeling afraid as if something awful might happen: 0 = Not at all Total SHAJI-7 score (0-4 normal; 5-9 mild; 10-14 moderate; 15-21 severe): 0 Source: Developed by Drs. Allen Muñoz, Ana Maria Ghotra, You Leal and colleagues, with an educational rickie from [employer] SHAJI-7 Assessment Billing SHAJI-7 Assessment Tool: SHAJI-7 Assessment 78000 Review of Systems Const All systems reviewed & are unremarkable except as noted in HPI and below Card Denies chest pain at rest, Denies chest pain with activity, Denies edema, Denies irregular heart rhythm, Denies claudication, Denies dyspnea, Denies dyspnea on exertion, Denies orthopnea, Denies paroxysmal nocturnal dyspnea and Denies slow heart rate Resp Denies cough, Denies dyspnea and Denies dyspnea on exertion GI Denies abdominal pain, Denies change in bowel habits, Denies excessive flatus, Denies nausea and Denies vomiting Denies urinary incontinence, Denies urinary hesitancy and Denies urinary urgency Musc Denies abnormal gait, Denies atrophy, Denies deformity and Denies limited range of motion Skin/Breast Denies bleeding lesions, Denies changing lesions and Denies rash Neuro Denies abnormal gait, Denies behavioral changes and Denies lack of coordination Psych Denies behavioral changes Physical exam (Primary Care) Vital Signs: Last Vital Signs Pulse 82 12/31/24 07:31 BP 122/78 12/31/24 07:31 Pulse Ox 98 12/31/24 07:31 Oxygen Delivery Method Room Air 12/31/24 07:31 BMI result Body Mass Index 35.8 BMI Assessment/Plan discussion: High BMI High, discussed plan: lifestyle, weight reduction, dietary and physical activity Tobacco/Smoking Status: Tobacco use Status Tobacco use date assessed 12/31/24 12/31/24 07:38 Patient Tobacco Use Status Never used Tobacco 12/31/24 07:38 Tobacco use type Cigarette 12/31/24 07:38 e-Cigarette/Vaping Use Never Used 12/31/24 07:38 PHQ-9: PHQ-9 Score PHQ-9: Total score 0 12/31/24 07:40 Depression Screening Interpretation: Negative Thrive Assessment: Date of Thrive Assessment Date Thrive assessed 12/24/24 12/31/24 07:38 Currently or been in a relationship where the following occur: I choose not to answer HENMT Head: Yes normal to inspection, Yes normocephalic and Yes atraumatic Ears: external ears normal Eyes General: appearance normal, both eyes and all related structures Eyelids: Yes eyelids normal Conjunctivae: conjunctivae normal Neck Neck: Yes normal visual inspection and Yes supple Resp Effort & Inspection: normal respiratory effort Auscultation: clear to auscultation bilaterally Cardio Jugular venous distension: no JVD Rate: regular rate Rhythm: regular rhythm Heart sounds: S1 normal heart sound present and S2 normal heart sound present GI Inspection: Yes normal to inspection Palpation (GI): Soft to palpation and nontender Auscultation: normal bowel sounds Skin General skin exam: no rashes or lesions noted Neuro General: no focal motor deficits Extrem General: Yes full ROM Psych Appearance: grossly normal Coding Level of Care Code Est Pt Level 3 (66970) Est Pt Prev Care 18-39y(58087) Diagnoses Physical exam Z00.00 Skin lesion L98.9 Left hand pain M79.642 Right hand pain M79.641 Additional Codes PHQ-9 - 48815 - PHQ-9 Billing: Yes ([id number]) SHAJI-7 Assessment Billing - SHAJI-7 Assessment Tool: SHAJI-7 Assessment 93024 ([id number]) Time Spent (min) 35 Assessment & Plan Assessment & Plan (1) Physical exam: Code(s): Z00.00 - Encounter for general adult medical examination without abnormal findings Category: Medical (2) Skin lesion: Code(s): L98.9 - Disorder of the skin and subcutaneous tissue, unspecified Category: Medical (3) Left hand pain: Code(s): M79.642 - Pain in left hand Category: Medical (4) Right hand pain: Code(s): M79.641 - Pain in right hand Category: Medical Plan The patient will be referred to rheumatology for further evaluation of her joint pain, which has persisted since her COVID-19 infection. Additionally, x-rays of the hands will be conducted to assess for any abnormalities. For her rapid weight loss, the patient is advised to continue her current exercise regimen and dietary modifications, focusing on portion control and protein intake. She is also advised to monitor her weight loss to prevent excessive loss and potential skin issues. Preventative care measures will continue, with the next Tdap vaccine due in 2028 and regular follow-ups for Pap smears as recommended by her OBGYN. Patient was informed and verbally consented to the use of an ambient scribe for clinic note documentation during this visit. I discussed with the patient the importance of consulting rheumatology for her joint pain and the need for x-rays to rule out any abnormalities. We also talked about her rapid weight loss and the importance of maintaining a balanced diet and exercise routine to prevent excessive weight loss and skin issues. Preventative care measures were reviewed, including the schedule for her next Tdap vaccine and the importance of regular Pap smears. Orders: Orders XR hand LT 2V Today M79.642 - Pain in left hand XR hand RT 2V Today M79.641 - Pain in right hand Referrals Rheumatology Referral M79.641 - Pain in right hand, M79.642 - Pain in left hand Dermatology Referral L98.9 - Disorder of the skin and subcutaneous tissue, unspecified Patient Instructions: - Follow up with rheumatology for joint pain evaluation. - Schedule x-rays for hands to check for abnormalities. - Continue exercise routine and focus on portion control and protein intake. - Monitor weight loss to prevent excessive loss and skin issues. - Schedule next Tdap vaccine for 2028 and follow up with OBGYN for regular Pap smears.
== END 2024-12-31 07:56 | disposition home or self-care (01) ==
LOC: HO.HMCH 07:30
PROVIDERS: PCP Internal Medicine; Visit Provider Internal Medicine
DX: Z00.00 Encounter for general adult medical examination without abnormal findings (principal); M79.642 Pain in left hand; L98.9 Disorder of the skin and subcutaneous tissue, unspecified; M79.641 Pain in right hand

== ENCOUNTER 2025-01-29 13:09 | Outpatient (AMB) | payer OTHER, SELFPAY ==
--- NOTE | 2025-01-29 13:13 | MHC.OFFVIS ---
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 Regular monthly menses. Currently is not sexually active. She denies current vaginal itching or irritation, recent BV treated by [employer]. She tries to eat healthy and stays active with exercise. Family history of breast cancer. Last pap smear 2021, negative. [facility] Medical History (Updated 01/29/25 @ 13:45 by Bess Barron CNM) IUD (intrauterine device) in place Flu-like symptoms Back pain Obesity (BMI 30-39.9) ADHD (attention deficit hyperactivity disorder) Migraine Bronchitis Surgical History No significant past surgical history Family History Maternal Grandfather Hypertension Maternal Grandmother Hypertension Maternal Aunt Breast cancer Family/Other Mental health disorder Substance use disorder Father No problems noted. Mother No problems noted. Social History Housing: House Alcohol intake: current Alcohol intake frequency: a few times a month Alcohol type: wine Patient Tobacco Use Status: Never used Tobacco Tobacco use type: Cigarette e-Cigarette/Vaping Use: Never Used Second Hand Smoke Exposure: Yes Substance Use Type: Marijuana service: No Current occupational status: employed Current occupational exposures/hazards: No Cognitive needs: No Hearing needs: No Vision needs: No Female Reproductive History Menstrual Age of Menarche: 12 control method: progestin IUCD (Mirena 12/2022) Total pregnancies: 1 Full term: 1 Number of Living Children: 1 Date of last pap smear: 05/25/21 (neg pap and hpv) Review of Systems Const All systems reviewed & are unremarkable except as noted in HPI and below Reports as per HPI Eyes Reports no additional complaints ENT Reports no additional complaints Card Reports no additional complaints Resp Reports no additional complaints GI Reports as per HPI and Reports no additional complaints Reports as per HPI Musc Reports no additional complaints Skin/Breast Reports as per HPI Neuro Reports no additional complaints Psych Reports no additional complaints Endo Reports no additional complaints Luis/Lymph Reports no additional complaints Aller/Immun Reports no additional complaints Physical Exam Vital Signs: Last Vital Signs BP 122/80 01/29/25 13:14 BMI result Body Mass Index 35.6 Const General: cooperative, healthy appearing, no acute distress, well developed and alert Orientation/consciousness: patient oriented x3 HEENT Head: Yes normal to inspection Eyes General: appearance normal, both eyes and all related structures Neck Neck: Yes normal visual inspection Thyroid: Thyroid normal Chest Chest palpation & inspection: normal inspection of the chest and other (no puckering, dimpling, peau de orange, retraction, discharge, masses) Breast/axilla inspection: normal inspection of the breasts Breast/axilla palpation: normal palpation of the breasts Resp Effort & Inspection: normal respiratory effort GI Inspection: Yes normal to inspection Palpation (GI): Soft to palpation Rectal Exam - Female: deferred General: Yes bladder normal to palpation External Female Exam: normal external appearance and normal appearance of the urethra Speculum Exam - Vagina: normal appearance of the vagina, normal palpation and normal vaginal discharge Speculum Exam - Cervix: normal appearance of the cervix, normal palpation and Other cervical findings present (IUD strings at the os) Bimanual exam- vagina & uterus: normal bimanual exam, normal palpation, uterine size normal, bladder normal to palpation, normal palpation and non-tender Bimanual Exam- Adnexa, other: no masses Skin General skin exam: no rashes or lesions noted Rashes: no rashes Neuro General: patient oriented x3 Cognition (Neuro): normal cognition Extrem General: Yes normal to inspection Psych Attitude: cooperative Thought process: Normal thought process present Assessment & Plan Assessment & Plan (1) Well woman exam with routine gynecological exam: Code(s): Z01.419 - Encounter for gynecological examination (general) (routine) without abnormal findings Category: Medical Plan Discussed: Current recommendations for pap smears per ASCCP guidelines. Breast awareness and periodic breast exams. Maintain a healthy lifestyle including a well balanced diet and routine exercise. Patient verbalizes understanding and agrees to the plan of care. She was given opportunity to ask questions and all questions were answered to the best of my ability. RTO in one year for annual anthropometrist examination. This note is constructed using voice recognition software. While every effort has been made to ensure accuracy, interdisciplinary professor errors may have been included. Coding Level of Care Code Est Pt Prev Care 18-39y(42606) Diagnoses Well woman exam with routine gynecological exam Z01.419
[2025-01-29 13:14] VITALS: BP 122/80; BMI 35.6
== END 2025-01-29 14:17 | disposition home or self-care (01) ==
LOC: HO.HWS 13:10
PROVIDERS: PCP Internal Medicine; Visit Provider Advanced Practice Midwife
DX: Z01.419 Encounter for gynecological examination (general) (routine) without abnormal findings (principal)
CPT/HCPCS: 99395; 99459

== ENCOUNTER 2025-05-20 14:46 | Outpatient (REF) | payer OTHER, SELFPAY ==
[2025-05-20 22:31] LABS: Bacterial Vaginosis PCR NEGATIVE (Negative); Candida Group PCR NOT DETECTED (Not Detect); Candida glab krusei PCR NOT DETECTED (Not Detect); Trichomonas vaginalis PCR NOT DETECTED (Not Detect)
[2025-05-21 00:48] LABS: CT PCR NOT DETECTED (Not Detect.); NG PCR NOT DETECTED (Not Detect.)
== END 2025-05-20 14:47 ==
LOC: HO.LNP 14:46
PROVIDERS: PCP Internal Medicine; Visit Provider Advanced Practice Midwife
DX: Z20.2 Contact with and (suspected) exposure to infections with a predominantly sexual mode of transmission (principal); Z97.5 Presence of (intrauterine) contraceptive device
CPT/HCPCS: 81515; 87491; 87591

== ENCOUNTER 2025-05-20 14:46 | Outpatient (AMB) | payer OTHER, SELFPAY ==
--- OUTSIDE RECORDS SUMMARY | 2025-03-14 03:30 | XMS_ITS ---
Author Organization [facility] Address [address] [place] [address] Care Team Providers Care Target Trimmer Name Role Phone Yesika URIBE, Vane Primary Care Provider Unavail able Page Solorzano Unavailable [phone] Mercedez Rothman Unavailable [phone] Allergies Allergen (clinical drug ingredient) Drug/Non Drug Allergy documented on EMR Reaction Allergy Type Onset Date Status almond allergenic extract almonds (uncoded) Unknown Allergy Active seasonal (uncoded) Unknown Allergy A ctive Medications Medication SIG (Take, Route, Frequency, Duration) Notes Start Date End Date Status Methylphenidate HCl 20 MG 1 tablet on an empty stomach Orally daily Active Social History Tobacco Use: Social History Observation Description Date Details (start date - stop date) Never Smoker NA - NA Tobacco use other than smoking: Question Answer Notes Are you an other tobacco user? No Tobacco Control (Standard) Question Answer Notes Tobacco use: Nonsmoker Additional Findings: Tobacco non-user Current no nsmoker AUDIT-C (Standard) Question Answer Notes Did you have a drink contain ing alcohol in the past year? Yes How often did you have a dri nk containing alcohol in the past year? Monthly or less (1 point) How many drinks did you have on a typical day when you were drinking in the past year? 1 or 2 drinks (0 point) How often did you have six o r more drinks on one occasion in the past year? Never (0 point) Points 1 Interpretation Negative Encounters Encounter Location Date Provider Diagnosis [facility] [address] [place] [address] 03/14/2025 Mercedez Rothman Plan Of Treatment Next Appt Details Provider Name:Page caicedo, 06/12/2025 02:00:00 PM, [address] [facility], [place], [address], Progress Notes * Kaylah CHOaDOB: 1 (34 yo F)Acc No.[id number]:03/14/2025 Progress Notes Patient: Art BERMUDEZ Provider: Astrid Rothman DPM :1990 A ge:34 Y S ex:Female Date:03/14/2025 Address:[address] [place] [address], [facility], [facility] Pcp:Vane Napoles MD Subjective: * Chief Complaints: * * ROS: G eneral/Constitutional: Nausea d enies. V omiting d enies. H viv Thirst d enies. L oss appetite d enies. C hills d enies. F atigue d enies.?Fever d enies. N ight Sweats d enies. U nexplained weight loss d enies. U nexplained weight gain d enies. H EENTM: Dentures d enies. D izziness d enies. G lasses/contacts d enies. R etinopathy d enies. B lurred/double vision d enies. T MJ?denies. D ischarge/drainage d enies. I mplants d enies. S ore throat d enies. D ental implants d enies. H aris of hearing d enies. D ifficulty chewing/swallowing/speaking d enies. N ose bleeds d enies. S ore mouth d enies. ? R espiratory: On Oxygen d enies. P neumonia/pleurisy d enies.?Bronchitis d enies. E mphysema d enies. C oughing d enies. C ough blood?denies. S hortness of breath d enies. W heezing d enies. C ardiovascular: Pacemaker d enies. M COIL SPRING ASSEMBLER d enies. W PW d enies. C HF d enies. H eart attack d enies. S eptal defect d enies. R apid beat d enies. C hest pain d enies. A trial Fib. d enies. M urmur/Palpitations d enies. G astrointestinal: Hemorrhoids d enies. S tomach/Abdominal pain d enies. D ark blood stool d enies. I rritable bowel d enies. C onstipation d enies. D iarrhea d enies. H ematology: Swelling d enies. C lots d enies. V aricose Veins d enies. B ruising d enies. B leeding problem d enies. G enitourinary: Blood urine d enies. F requent/Painfu/urination/bladder control d enies. K idney stones d enies. I nfection (UTI) d enies. N ephropathy d enies. s ex trans dis (STD) d enies. P rostate d enies. M usculoskeletal: Hammertoes d enies. B unions d enies. B ack Pain d enies. M uscle Cramps/ Resting d enies. M uscle cramps / walking d enies.?Generalized aches and pains d enies. W eakness d enies. I nteg.: Woods d enies. S cars d enies. C orns/calluses?denies. I ngrown nails d enies. P ainful nails d enies. O pen Sores d enies. R ashes d enies. N eurologic: Difficulty sleeping d enies. B rain disorder d enies. N umbness d enies. B alance trouble d enies. C onfusion d enies. F ainting/blackouts d enies. T ingling d enies. T remors d enies. * Medical History: C ovid-19, Headaches/Migraines, ADHD. * Social History: T obacco Use: T obacco use other than smoking A re you an other tobacco user? N o Tobacco Control (Standard) T obacco use: N onsmoker A dditional Findings: Tobacco non-user C urrent nonsmoker D rugs/Alcohol: D rugs H ave you used drugs other than those for medical reasons in the past 12 months? Y es Marijuana M iscellaneous: C affeine: yes, frequency:. Children: yes, 1. Marital status: Single. Occupation: [employer] D rug/Alcohol: A SYD-C (Standard) D id you have a drink containing alcohol in the past year? Y es H ow often did you have a drink containing alcohol in the past year? M onthly or less (1 point) H ow many drinks did you have on a typical day when you were drinking in the past year? 1 or 2 drinks (0 point) H ow often did you have six or more drinks on one occasion in the past year? N ever (0 point) P oints 1 I nterpretation N egative * Medications: T aking Methylphenidate HCl 20 MG Tablet 1 tablet on an empty stomach Orally daily * Allergies: s easonal: Allergy, almonds: Allergy. Objective: * Vitals: Assessment: Plan: * Treatment: * Images: * The named appointment provid er may or may not be the originator of this progress note, and it is not deemed complete until electronically signed by the appointment provider. Sign off status: Pending * Provider: Astrid Rothman DPM Date: Generated for Frank reynolds/Devorah/Ravinder on: 06:23 PM EST
[2025-05-20 15:03] VITALS: BP 122/84; BMI 35.6
--- NOTE | 2025-05-20 15:03 | MHC.OFFVIS ---
Vital Signs 05/20/25 15:03 Height 5 ft 5 in Weight 214 lb BMI 35.6 BP 122/84 Blood Pressure Location Rt brachial Position Sitting Intake Visit Reasons: STD screening Allergies Peanut (Diagnostic) Allergy (Severe, Uncoded 05/20/25 15:04) breathing difficulty, itching in throat peanuts Allergy (Severe, Uncoded 05/20/25 15:04) breathing difficulty, itching in throat seasonal Allergy (Mild, Uncoded 05/20/25 15:04) runny nose nut allergies Adverse Reaction (Severe, Uncoded 05/20/25 15:04) breathing difficulty, itching in throat Medication List - Last Reconciled 05/20/25 by Lyndsay Hopper CNM albuterol sulfate 90 mcg/actuation 2 puffs inhalation Q4-6H PRN levonorgestrel (Mirena) intrauterine methylphenidate HCl 20 mg PO DAILY Is last menstrual period known: Yes HPI HPI STD screening: Details: Patient is here because she would like to get screened for STIs she is starting a relationship with a new partner and they have both agreed to both get screened and tested for STIs she has no history of anything other than bacterial vaginosis and sometimes a test positive but sometimes she does have symptoms of it but she is not having any symptoms of anything now. She has the Mirena for control and that is working well mostly she does not get a period though last May she had a period for about 5 weeks She is interested in getting a full panel of blood work though she does not feel she needs any screening for herpes education was done about why we do not normally routinely screened for herpes as most people of had contact with the virus in her lifetime at some stage or another. 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 [facility] Medical History (Updated 05/20/25 @ 15:55 by Lyndsay Hopper CNM) IUD (intrauterine device) in place Flu-like symptoms Back pain Obesity (BMI 30-39.9) ADHD (attention deficit hyperactivity disorder) Migraine Bronchitis Surgical History No significant past surgical history Family History Maternal Grandfather Hypertension Maternal Grandmother Hypertension Maternal Aunt Breast cancer Family/Other Mental health disorder Substance use disorder Father No problems noted. Mother No problems noted. Social History Housing: House Alcohol intake: current Alcohol intake frequency: a few times a month Alcohol type: wine Patient Tobacco Use Status: Never used Tobacco Tobacco use type: Cigarette e-Cigarette/Vaping Use: Never Used Second Hand Smoke Exposure: Yes Substance Use Type: Marijuana service: No Current occupational status: employed Current occupational exposures/hazards: No Cognitive needs: No Hearing needs: No Vision needs: No Female Reproductive History Menstrual Age of Menarche: 12 control method: progestin IUCD Total pregnancies: 1 Number of Living Children: 1 Date of last pap smear: 05/25/21 Physical Exam Vital Signs: Last Vital Signs BP 122/84 05/20/25 15:03 BMI result Body Mass Index 35.6 Other: Normal speculum exam cervix multiparous pink smooth healthy appearing Mirena string visible, extends about 2 c,. with normal healthy clear mucus.. External Female Exam: normal external appearance and normal appearance of the urethra Speculum Exam - Vagina: normal appearance of the vagina and normal vaginal discharge Speculum Exam - Cervix: normal appearance of the cervix and Cervical os closed Assessment & Plan Assessment & Plan (1) Encounter for screening examination for sexually transmitted disease: Code(s): Z11.3 - Encounter for screening for infections with a predominantly sexual mode of transmission Category: Medical (2) IUD (intrauterine device) in place: Comment: Roland 12/29/22 for contraception Code(s): Z97.5 - Presence of (intrauterine) contraceptive device Category: Medical Plan Testing done in the visit for gonorrhea chlamydia trichomoniasis bacterial vaginosis and yeast. Discussed bacterial vaginosis and that it can not peer often when it is not actually an infection. Discussed OTC treatments as well such as boric acid if she does have an abnormal discharge or odor especially if that is after sex. She is on the portal she would also like to get blood work for STIs just to be complete. Applauded patient and her partner for her therefore thinking in commitment to each other's health. Wished her luck with finishing school. She has a 13-year-old daughter so she is also parentingy. Orders: Orders Bacterial Vaginosis Panel Today Z11.3 - Encounter for screening for infections with a predominantly sexual mode of transmission Hepatitis B Surface Antigen Today Z11.3 - Encounter for screening for infections with a predominantly sexual mode of transmission HIV Ab/Ag Today Z11.3 - Encounter for screening for infections with a predominantly sexual mode of transmission Syphilis Screen Today Z11.3 - Encounter for screening for infections with a predominantly sexual mode of transmission CT NG by PCR Vag/Cerv Today Z11.3 - Encounter for screening for infections with a predominantly sexual mode of transmission Hepatitis C Antibody Today Z11.3 - Encounter for screening for infections with a predominantly sexual mode of transmission Coding Level of Care Code Est Pt Level 3 (10553) Diagnoses Encounter for screening examination for sexually transmitted disease Z11.3 IUD (intrauterine device) in place Z97.5
--- OUTSIDE RECORDS SUMMARY | 2025-05-20 18:24 | XMS_ITS | Patient Health Record ---
Author Organization [facility] Address [address] [facility] [place] [address] Care Team Providers Care Physical Design Engineer Name Role Phone Yesika URIBE, Vane Primary Care Provider Unavail Page Treviño Unavailable [phone] Mercedez Rothman Unavailable [phone] Allergies Allergen (clinical drug ingredient) Drug/Non Drug Allergy documented on EMR Reaction Allergy Type Onset Date Status almond allergenic extract almonds (uncoded) Unknown Allergy Active seasonal (uncoded) Unknown Allergy A ctive Reason For Referral No Information Medications Medication SIG (Take, Route, Frequency, Duration) [...] Negative Encounters Encounter Location Date Provider Diagnosis [address] [place] [address] 03/13/2025 Page Solorzano Plan Of Treatment Next Appt Details Provider Name:Page Tracy marifer, 06/12/2025 02:00:00 PM, [address] [facility], [place], [address], Insurance Providers Payer Name Payer Address Payer Phone Subscriber Number Group Number Insured Name Patient Relationship to Insured Coverage Start Date Coverage End Date [facility] [address] [place] [address] [phone] [id number] Atr Cho Self - patient is the insured Medical (General) History Medical History History ICD Code covid-19 Headaches/Migraines ADHD
--- OUTSIDE RECORDS SUMMARY | 2025-05-20 18:24 | XMS_ITS | Continuity of Care Document ---
Author Organization [facility] Address [address] [address] Insurance Providers Payer Plan Claims Address Claims Phone Policy Number Group Number Relation Employer Guarantor Name Guarantor Guarantor Address Guarantor Phone [employer] cr[employer]iano [employer] Allian leonela Herrera ense [employer] n Allia nce [id number] [facility], [address], [place] [address] tel:[phone] [id number] Self Art Cho 1990 [address] [facility], [id number], [place] [id number] Problems Condition ICD9 code ICD10 code SNOMED code Start Date End Date S tatus Encounter for screening for other metabolic disorders Z13.228 Results No Results Allergies, adverse reactions, alerts No known allergies and adverse reactions Medications No administered medications reported Vital Signs No vital signs reported Social History No smoking Hx information available
== END 2025-05-20 15:55 | disposition home or self-care (01) ==
LOC: HO.HWSM 14:46
PROVIDERS: PCP Internal Medicine; Visit Provider Advanced Practice Midwife
DX: Z11.3 Encounter for screening for infections with a predominantly sexual mode of transmission (principal); Z97.5 Presence of (intrauterine) contraceptive device
CPT/HCPCS: 99213

== ENCOUNTER 2025-05-20 15:57 | Outpatient (REF) | payer OTHER, SELFPAY ==
[2025-05-21 04:06] LABS: Syphilis Screen Nonreactive (Nonreactive)
[2025-05-21 04:08] LABS: HBsAGNum1 0.30 S/CO (0.00-0.99); HIV Num 1 0.05 S/CO (0.00-0.99); Hepatitis B Surface Antigen Negative (Negative); ~HepC Num1 0.09 S/CO (0.00-0.79); ~Hepatitis C Antibody Nonreactive (Nonreactive)
== END 2025-05-20 15:58 ==
LOC: HO.HHCL 15:57
PROVIDERS: PCP Internal Medicine; Visit Provider Advanced Practice Midwife
DX: Z11.3 Encounter for screening for infections with a predominantly sexual mode of transmission (principal); Z11.4 Encounter for screening for human immunodeficiency virus [HIV]; Z11.59 Encounter for screening for other viral diseases
CPT/HCPCS: 36415; 86780; 86803; 87340; 87389